=== PATIENT | male | born 1950 | race Two or more races ===

== ENCOUNTER 2020-07-05 08:52 | Outpatient (REF) | payer MEDICARE, SELFPAY | END 2020-07-05 08:53 | disposition home or self-care (01) | LOC: HO.LAB 08:52 | PROVIDERS: Visit Provider Internal Medicine | DX: Z20.828 Contact with and (suspected) exposure to other viral communicable diseases (principal) | CPT/HCPCS: C9803; U0003 ==

== ENCOUNTER 2022-06-22 15:01 | Outpatient (REF) | payer OTHER, SELFPAY ==
[2022-06-22 17:06] LABS: Vitamin B12 554 pg/mL (200-900)
== END 2022-06-22 15:02 | disposition home or self-care (01) ==
LOC: HO.LAB 15:01
PROVIDERS: Visit Provider Psychiatry & Neurology Neurology
DX: G31.84 Mild cognitive impairment of uncertain or unknown etiology (principal)
CPT/HCPCS: 36415; 82607

== ENCOUNTER → 2022-08-03 15:45 | Outpatient (REF) | payer OTHER, SELFPAY | LOC: HO.SL 15:45 | PROVIDERS: PCP Pediatrics; Visit Provider Psychiatry & Neurology Neurology | DX: G47.33 Obstructive sleep apnea (adult) (pediatric) (principal) | CPT/HCPCS: 95810 ==

== ENCOUNTER 2022-10-05 13:44 | Outpatient (REF) | payer OTHER, SELFPAY ==
--- NOTE | ~2022-10-05 | XR_ITS ---
EXAMINATION: XR BILATERAL HIPS WITH AP PELVIS CLINICAL INFORMATION: Pain. COMPARISON: Prior radiographs, most recently 05/09/2019. TECHNIQUE: AP and frog-leg lateral views of each hip and an AP view of the pelvis. FINDINGS: Bony alignment and mineralization are normal. The bilateral acetabular joint spaces show mild superolateral narrowing, with mild peripheral osteophyte formation of the acetabular roofs. The femoral heads appear smooth. There is no fracture or dislocation. The sacroiliac joints are symmetric. The pubic symphysis is intact. No foreign body is seen. XR/XR hip BI w PEL1V IMPRESSION: There is mild osteoarthritic change of the bilateral hips. No fracture or dislocation is seen.
== END 2022-10-05 13:45 | disposition home or self-care (01) ==
LOC: HO.XRAY 13:44
PROVIDERS: PCP Pediatrics; Visit Provider Nurse Practitioner Family
DX: M16.0 Bilateral primary osteoarthritis of hip (principal); M70.61 Trochanteric bursitis, right hip; M70.62 Trochanteric bursitis, left hip
CPT/HCPCS: 73521; 99202

== ENCOUNTER 2022-10-27 07:44 | Day surgery (SDC) | payer OTHER, SELFPAY ==
[2022-10-23 14:25] VITALS: BMI 31.8
--- NOTE | 2022-10-26 12:11 | HO.ANESPROP2 ---
Documented by User: Rosy Plascencia NP 10/26/22 12:14 HPI - Anesthesia Eval Consult details Narrative: 72yo M for Left Therapeutic intra-Articular hip Injection PMFSH Active Problems Active Problems: All Active Problems (Updated 10/23/22 @ 14:22 by Renita Damon RN) Degenerative joint disease of both hips (Acute) Past Medical History Medical History (Updated 10/23/22 @ 14:22 by Renita Damon RN) GERD (gastroesophageal reflux disease) Hypercholesterolemia Hyperlipidemia Hypertension Impotence of organic origin Obesity Osteoarthritis Restless leg Vitamin B12 deficiency Surgical History Surgical History (Updated 10/23/22 @ 14:15 by Renita Damon RN) History of esophagogastroduodenoscopy (EGD) History of surgery Hx of colonoscopy Social History Social History Patient Tobacco Use Status: Never used Tobacco Are you DNR?: No Advance Directives: No Advance Directives Information Provided: Yes Nutrition Risks: No Nutritional Risk Meds Allergies Allergy/AdvReac Type Severity Reaction Status Date / Time ibuprofen [Ibuprofen] Allergy Intermediate SWELLING Verified 10/27/22 08:34 Home Medications Medication Instructions Recorded Confirmed Last Taken Type atorvastatin 80 mg tablet 80 mg PO DAILY 10/05/22 10/23/22 Unknown History cetirizine 10 mg tablet 10 mg PO DAILY PRN Allergic 10/05/22 10/23/22 Unknown History Symptoms cholecalciferol (vitamin D3) 50 50 mcg PO DAILY 10/05/22 10/23/22 Unknown History mcg (2,000 unit) capsule omega-3 fatty acids-fish oil 340 1 cap PO Q12H 10/05/22 10/23/22 Unknown History mg-1,000 mg capsule omeprazole 20 mg capsule,delayed 20 mg PO BID 10/05/22 10/23/22 Unknown History release ropinirole 3 mg tablet 3 mg PO DAILY 10/05/22 10/23/22 Unknown History sertraline 50 mg tablet 50 mg PO QAM 10/05/22 10/23/22 Unknown History cyanocobalamin (vitamin B-12) 1 tab PO DAILY 10/23/22 10/23/22 Unknown History 1,000 mcg tablet fluticasone propionate 50 1 spray intranasal DAILY 10/23/22 10/23/22 Unknown History mcg/actuation nasal spray,suspension Exam Exam Date and Time: October 26, 2022 1211 Height,Weight and Vital Signs: Height 5 ft 3 in Weight 81.647 kg Assessment and Plan Assessment Anesthesia Assessment: Chart Reviewed Documented by User: Norma Lawrence MD 10/27/22 08:38 [facility] Past Medical History Medical History (Updated 10/23/22 @ 14:22 by Renita Damon RN) GERD (gastroesophageal reflux disease) Hypercholesterolemia Hyperlipidemia Hypertension Impotence of organic origin Obesity Osteoarthritis Restless leg Vitamin B12 deficiency Functional capacity: independent ambulation Family History Family history of problems with anesthesia: No Surgical History Surgical History (Updated 10/23/22 @ 14:15 by Renita Damon RN) History of esophagogastroduodenoscopy (EGD) History of surgery Hx of colonoscopy History of Problems with Anesthesia: No Social History Social History Patient Tobacco Use Status: Never used Tobacco Are you DNR?: No Advance Directives: No Advance Directives Information Provided: Yes Nutrition Risks: No Nutritional Risk Meds Allergies Allergy/AdvReac Type Severity Reaction Status Date / Time ibuprofen [Ibuprofen] Allergy Intermediate SWELLING Verified 10/27/22 08:34 Home Medications Medication Instructions Recorded Confirmed Last Taken Type atorvastatin 80 mg tablet 80 mg PO DAILY 10/05/22 10/23/22 Unknown History cetirizine 10 mg tablet 10 mg PO DAILY PRN Allergic 10/05/22 10/23/22 Unknown History Symptoms cholecalciferol (vitamin D3) 50 50 mcg PO DAILY 10/05/22 10/23/22 Unknown History mcg (2,000 unit) capsule omega-3 fatty acids-fish oil 340 1 cap PO Q12H 10/05/22 10/23/22 Unknown History mg-1,000 mg capsule omeprazole 20 mg capsule,delayed 20 mg PO BID 10/05/22 10/23/22 Unknown History release ropinirole 3 mg tablet 3 mg PO DAILY 10/05/22 10/23/22 Unknown History sertraline 50 mg tablet 50 mg PO QAM 10/05/22 10/23/22 Unknown History cyanocobalamin (vitamin B-12) 1 tab PO DAILY 10/23/22 10/23/22 Unknown History 1,000 mcg tablet fluticasone propionate 50 1 spray intranasal DAILY 10/23/22 10/23/22 Unknown History mcg/actuation nasal spray,suspension Exam Airway Mallampati Class: II (Missing multiple teeth, loose top front, couple to be removed) TM Dist: >3cm Neck ROM: Full Heart: rrr Lungs: cta bl Assessment and Plan Assessment Anesthesia Assessment: Anesthesia Plan Discussed Final Anesthetic Review Family History of Problems with Anesthesia: No History of Problems with Anesthesia: No NPO: Yes ASA Class: III Final Preanesthetic Review: No Changes in Pt Med Stat, Meds/Allgs Chart Reviewed and Consent Obtained/Reviewed Patient Risk: Intermediate Procedure Risk: Intermediate Anesthetic Plan Anesthetic Plan: MAC: Disposition: Standard PACU
--- NOTE | ~2022-10-27 | FL_ITS ---
EXAMINATION: XR FLUOROSCOPY WITH IMAGES CLINICAL INFORMATION: Hip pain. Pain management procedure. COMPARISON: Pelvic and hip radiographs 10/05/2022 TECHNIQUE: Fluoroscopy Supervised By: Dr. Diego Hand. Fluoroscopy Time: 0.2 minutes. Cumulative Dose: 9.31 mGy. DAP: 2.53 Gycm2. Images: 1. FINDINGS: There is a spinal needle with tip overlying the superolateral left hip joint. There is intracapsular contrast. No visible vascular communication. FL/FL guidance in OR IMPRESSION: Fluoroscopy for pain management procedure.
[2022-10-27] MEDS: Lactated Ringers 1,000 ML 100 ML IVCONT (08:20)
--- NOTE | 2022-10-27 08:30 | P.HPSUR_ITS ---
Pre-Procedural Eval Section A Date of Service: 10/27/22 The patient is an INPATIENT: No Changes since office visit: Yes Patient answered all questions The History & Physical has been completed within 30 days and I have reviewed it.: No Section B Chief Complaint: Bilateral primary osteoarthritis of hip/ Left hip Relevant Family History (Specify if Yes): No Relevant Social History: None Present Medications: see Short Stay Collaborative assessment Medical History: No relevant PMH History of Previous Operations: No relevant previous surgery Allergies: Allergies Allergy/AdvReac Type Severity Reaction Status Date / Time ibuprofen [Ibuprofen] Allergy Intermediate SWELLING Verified 10/05/22 13:51 Review of Systems Sugical H&P ROS: Negative: Constitution, Cardiovascular, Respiratory, Michael rological, Psychiatric, Hem-Onc, Allergic/Immunologic, Gastrointestinal, Genitourinary, Musculoskeletal, Integumentary, Endocrine and Eyes/Ears/Nose/Throat Exam Surgical H&P Exam: Normal: HEENT, Normal: Heart, Normal: Lungs, Normal: Extremities, Normal: Abdomen, Normal: Skin and Normal: Neurological Plan Diagnosis/Plan: Unchanged I have reviewed the history and physical and performed a pertinent physical examination on my patient. No changes have occurred unless specified. Time Spent With Patient Time: Total time managing care of this patient today ____ minutes.
[2022-10-27 08:40] VITALS: BP 144/80; PULSE 81; RESP 18; TEMP 36.9; O2SAT 96
--- NOTE | 2022-10-27 08:40 | W.PM.OPN ---
Operative Note Operative Note Date of Service: 10/27/22 Narrative: Left? Intra-articular hip steroid injection.? ?informed consent was explained to the patient, risks and benefits were explained. The patient was? taken to the operating room where he was position on right lateral decubital position the operating table with dependent leg flexed in the hip and knee joints and left non-dependent leg positioned straight. ASA m-rs were applied and the patient was sedated. His left lateral hip, anterior hip and posterior hip were prepped with ChloraPrep and draped with sterile utility towels.? Time-out was performed delineating? date of of the patient and name of the patient nature of the procedure site and side of the procedure noon allergy risk of fire and need of antibiotic prophylaxis. Sterilely draped C-arm was brought over the operating field and picture of the bilateral hip joints was demonstrated on the screen. The smaller silhouette of the joint was chosen as the target of the injection. 2 mm above the projection of the trochanter of the left hip injection of the local anesthetic was performed lidocaine 2%. After that 22 gauge 5 in needle was inserted through the skin wheal and advanced to the joint silhouette on anterior posterior and lateral intermittent view. ? When needle tip entered the joint capsule injection of the contrast was performed demonstrating intra-articular spread of the contrast.? After that treatment solution containing bupivacaine 0.5% 4 cc mixed with Kenalog 40 mg was injected into the joint.? The patient tolerated procedure well.? he was taken outside of the operating room to recovery room where he recovered uneventfully.
--- NOTE | 2022-10-27 08:41 | PC.NURSE ---
Dr. Lawrence reviewed EKG strip at bedside. No EKG or interventions needed at this time.
--- NOTE | 2022-10-27 09:02 | PM.OP ---
Brief Operative Note Date of Service: 10/27/22 Pre-op diagnosis: osteoarthritis left hip Post-op diagnosis: same Procedure: left hip joint intraarticular steroid injection. Surgeon: Diego Hand MD Anesthesia: MAC Was an Vacuum Cleaner Assembler used for this Procedure?: No Estimated blood loss (mL): 0 Condition: stable Disposition: PACU
[2022-10-27 09:05] VITALS: BP 106/57; PULSE 82; RESP 16; TEMP 36.6; O2SAT 92
[2022-10-27 09:20] VITALS: BP 111/73; PULSE 88; RESP 16; O2SAT 94
[2022-10-27 09:35] VITALS: BP 127/67; PULSE 75; RESP 16; TEMP 36.6; O2SAT 94
== END 2022-10-27 09:47 | disposition home or self-care (01) ==
PROVIDERS: PCP Pediatrics; Visit Provider Anesthesiology
PROC: (CPT 20610; principal; 2022-10-27 09:10)
DX: M25.552 Pain in left hip (principal); M70.62 Trochanteric bursitis, left hip; M16.0 Bilateral primary osteoarthritis of hip; I10 Essential (primary) hypertension; E78.00 Pure hypercholesterolemia, unspecified; G25.81 Restless legs syndrome; E53.8 Deficiency of other specified B group vitamins; Z79.899 Other long term (current) drug therapy; Z88.8 Allergy status to other drugs, medicaments and biological substances
CPT/HCPCS: 20610; J2250; J3010; J3301

== ENCOUNTER 2022-11-10 09:19 | Day surgery (SDC) | payer OTHER, SELFPAY ==
[2022-10-31 10:58] VITALS: BMI 31.8
--- NOTE | 2022-11-09 11:59 | HO.ANESPROP2 ---
Documented by User: Rosy Plascencia NP 11/09/22 12:00 HPI - Anesthesia Eval Consult details Narrative: 72yo M for Right Therapeutic Intra-Articular Hip Injection s/p Left side 10/27/22 with MAC PMFSH Active Problems Active Problems: All Active Problems (Updated 10/23/22 @ 14:22 by Renita Damon RN) Degenerative joint disease of both hips (Acute) Past Medical History Medical History GERD (gastroesophageal reflux disease) Hypercholesterolemia Hyperlipidemia Hypertension Impotence of organic origin Obesity Osteoarthritis Restless leg Vitamin B12 deficiency Family History Family history of problems with anesthesia: No Surgical History Surgical History History of esophagogastroduodenoscopy (EGD) History of surgery History of surgery Hx of colonoscopy History of Problems with Anesthesia: No Social History Social History Patient Tobacco Use Status: Former Tobacco user Quit Date: 40 yrs ago Use of substances other than those prescribed or required for medical reasons: No Are you DNR?: No Advance Directives: No Advance Directives Information Provided: Yes Meds Allergies Allergy/AdvReac Type Severity Reaction Status Date / Time ibuprofen [Ibuprofen] Allergy Intermediate SWELLING Verified 11/10/22 09:37 Home Medications Medication Instructions Recorded Confirmed Last Taken Type atorvastatin 80 mg tablet 80 mg PO DAILY 10/05/22 11/10/22 Unknown History cetirizine 10 mg tablet 10 mg PO DAILY PRN Allergic 10/05/22 11/10/22 Unknown History Symptoms cholecalciferol (vitamin D3) 50 50 mcg PO DAILY 10/05/22 11/10/22 Unknown History mcg (2,000 unit) capsule omega-3 fatty acids-fish oil 340 1 cap PO Q12H 10/05/22 11/10/22 Unknown History mg-1,000 mg capsule omeprazole 20 mg capsule,delayed 20 mg PO BID 10/05/22 11/10/22 Unknown History release ropinirole 3 mg tablet 3 mg PO DAILY 10/05/22 11/10/22 Unknown History cyanocobalamin (vitamin B-12) 1 tab PO DAILY 10/23/22 11/10/22 Unknown History 1,000 mcg tablet fluticasone propionate 50 1 spray intranasal DAILY 10/23/22 11/10/22 Unknown History mcg/actuation nasal spray,suspension Exam Exam Date and Time: November 09, 2022 1159 Height,Weight and Vital Signs: Height 5 ft 3 in Weight 81.647 kg Assessment and Plan Assessment Anesthesia Assessment: Chart Reviewed Final Anesthetic Review Family History of Problems with Anesthesia: No History of Problems with Anesthesia: No Documented by User: Olegario Reardon MD 11/10/22 09:40 COUNT INCLUDES THE [facility] Past Medical History Medical History GERD (gastroesophageal reflux disease) Hypercholesterolemia Hyperlipidemia Hypertension Impotence of organic origin Obesity Osteoarthritis Restless leg Vitamin B12 deficiency Surgical History Surgical History History of esophagogastroduodenoscopy (EGD) History of surgery History of surgery Hx of colonoscopy Social History Social History Patient Tobacco Use Status: Former Tobacco user Quit Date: 40 yrs ago Use of substances other than those prescribed or required for medical reasons: No Are you DNR?: No Advance Directives: No Advance Directives Information Provided: Yes Meds Allergies Allergy/AdvReac Type Severity Reaction Status Date / Time ibuprofen [Ibuprofen] Allergy Intermediate SWELLING Verified 11/10/22 09:37 Home Medications Medication Instructions Recorded Confirmed Last Taken Type atorvastatin 80 mg tablet 80 mg PO DAILY 10/05/22 11/10/22 Unknown History cetirizine 10 mg tablet 10 mg PO DAILY PRN Allergic 10/05/22 11/10/22 Unknown History Symptoms cholecalciferol (vitamin D3) 50 50 mcg PO DAILY 10/05/22 11/10/22 Unknown History mcg (2,000 unit) capsule omega-3 fatty acids-fish oil 340 1 cap PO Q12H 10/05/22 11/10/22 Unknown History mg-1,000 mg capsule omeprazole 20 mg capsule,delayed 20 mg PO BID 10/05/22 11/10/22 Unknown History release ropinirole 3 mg tablet 3 mg PO DAILY 10/05/22 11/10/22 Unknown History cyanocobalamin (vitamin B-12) 1 tab PO DAILY 10/23/22 11/10/22 Unknown History 1,000 mcg tablet fluticasone propionate 50 1 spray intranasal DAILY 10/23/22 11/10/22 Unknown History mcg/actuation nasal spray,suspension Exam Airway Mallampati Class: II TM Dist: >3cm Neck ROM: Limited Heart: rrr Lungs: cta Assessment and Plan Assessment Anesthesia Assessment: Anesthesia Plan Discussed Final Anesthetic Review ASA Class: III Final Preanesthetic Review: No Changes in Pt Med Stat, Meds/Allgs Chart Reviewed, Consent Obtained/Reviewed and Anes Risks/Benef Reviewed Patient Risk: Intermediate Procedure Risk: Low Anesthetic Plan Anesthetic Plan: MAC: Disposition: Standard PACU
--- NOTE | ~2022-11-10 | FL_ITS ---
EXAMINATION: XR FLUOROSCOPY WITH IMAGES CLINICAL INFORMATION: Intra-articular injection. Right hip pain COMPARISON: None available. TECHNIQUE: Fluoroscopy Supervised By: Dr. Diego Holliday Fluoroscopy Time: 0.2 minutes. Cumulative Dose: 4.28 mGy. DAP: 1.16 Gycm2. Images: 1. FINDINGS: There is a single image of right hip obtained revealing contrast opacifying the right hip joint space. No bony erosive changes. There are no loose bodies. No fracture or dislocation. FL/FL guidance in OR IMPRESSION: Fluoroscopy was provided to referring physician for right hip pain management.
[2022-11-10 09:29] VITALS: BMI 32.8
[2022-11-10 09:37] VITALS: BP 143/65; PULSE 82; RESP 16; TEMP 36.1; O2SAT 97
[2022-11-10] MEDS: Lactated Ringers 1,000 ML 100 ML IVCONT (09:54)
--- NOTE | 2022-11-10 10:53 | MHC.SHP ---
Pre-Procedural Eval Section A Date of Service: 11/10/22 The patient is an INPATIENT: No Changes since office visit: Yes Patient answered all questions The History & Physical has been completed within 30 days and I have reviewed it.: No Section B Chief Complaint: Bilateral primary osteoarthritis of hip,Pain in ri Details of Present Illness: as above Relevant Family History (Specify if Yes): No Relevant Social History: None Present Medications: see Short Stay Collaborative assessment Medical History: No relevant PMH History of Previous Operations: No relevant previous surgery Allergies: Allergies Allergy/AdvReac Type Severity Reaction Status Date / Time ibuprofen [Ibuprofen] Allergy Intermediate SWELLING Verified 11/10/22 09:37 Review of Systems Sugical H&P ROS: Negative: Constitution, Cardiovascular, Respiratory, Neurological, Psychiatric, Hem-Onc, Allergic/Immunologic, Gastrointestinal, Genitourinary, Integumentary, Endocrine and Eyes/Ears/Nose/Throat and Yes, Specify: Musculoskeletal (arthritis) Exam Surgical H&P Exam: Normal: HEENT, Normal: Heart, Normal: Lungs, Normal: Extremities, Normal: Abdomen, Normal: Skin and Normal: Neurological Plan Diagnosis/Plan: Unchanged I have reviewed the history and physical and performed a pertinent physical examination on my patient. No changes have occurred unless specified. Time Spent With Patient Time: Total time managing care of this patient today ____ minutes.
--- NOTE | 2022-11-10 11:23 | P.BOP_ITS ---
Brief Operative Note Date of Service: 11/10/22 Pre-op diagnosis: bilateral osteoarthritis hip joints Post-op diagnosis: same Procedure: right hip steroid injectioon Surgeon: Diego Hand MD Anesthesia: MAC Was an Fast Food Assistant Restaurant Manager used for this Procedure?: No Estimated blood loss (mL): 0 Condition: stable Disposition: PACU
--- NOTE | 2022-11-10 11:25 | W.PM.OPN ---
Operative Note Operative Note Date of Service: 10/27/22 Narrative: right? Intra-articular hip steroid injection.? ?informed consent was explained to the patient, risks and benefits were explained. The patient was? taken to the operating room where he was position on left lateral decubital position the operating table with dependent leg flexed in the hip and knee joints and right non-dependent leg positioned straight. ASA m-rs were applied and the patient was sedated. His right lateral hip, anterior hip and posterior hip were prepped with ChloraPrep and draped with sterile utility towels.? Time-out was performed delineating? date of of the patient and name of the patient nature of the procedure site and side of the procedure noon allergy risk of fire and need of antibiotic prophylaxis. Sterilely draped C-arm was brought over the operating field and picture of the bilateral hip joints was demonstrated on the screen. The smaller silhouette of the joint was chosen as the target of the injection. 2 mm above the projection of the trochanter of the right hip injection of the local anesthetic was performed lidocaine 2%. After that 22 gauge 5 in needle was inserted through the skin wheal and advanced to the joint silhouette on anterior posterior and lateral intermittent view. ? When needle tip entered the joint capsule injection of the contrast was performed demonstrating intra-articular spread of the contrast.? After that treatment solution containing bupivacaine 0.5% 4 cc mixed with Kenalog 40 mg was injected into the joint.? The patient tolerated procedure well.? he was taken outside of the operating room to recovery room where he recovered uneventfully.
[2022-11-10 11:28] VITALS: BP 112/61; PULSE 81; RESP 16; TEMP 36.6; O2SAT 93
[2022-11-10 11:43] VITALS: BP 129/78; PULSE 66; RESP 16; TEMP 36.3; O2SAT 95
== END 2022-11-10 12:20 | disposition home or self-care (01) ==
PROVIDERS: PCP Pediatrics; Visit Provider Anesthesiology
PROC: (CPT 20610; principal; 2022-11-10 10:40)
DX: M25.551 Pain in right hip (principal); M16.0 Bilateral primary osteoarthritis of hip; M70.61 Trochanteric bursitis, right hip; G25.81 Restless legs syndrome; I10 Essential (primary) hypertension; E78.00 Pure hypercholesterolemia, unspecified; E53.8 Deficiency of other specified B group vitamins; K21.9 Gastro-esophageal reflux disease without esophagitis; E66.9 Obesity, unspecified; Z68.33 Body mass index [BMI] 33.0-33.9, adult; Z79.899 Other long term (current) drug therapy; Z88.8 Allergy status to other drugs, medicaments and biological substances; Z87.891 Personal history of nicotine dependence
CPT/HCPCS: 20610; J1100; J2795; J3301; Q9965; Q9967

== ENCOUNTER 2023-02-14 08:38 | Outpatient (REF) | payer OTHER, SELFPAY ==
--- NOTE | 2023-02-14 08:41 | EMG_ITS ---
Please see scanned EMG / Nerve Conduction Report. MTDD
== END 2023-02-14 08:39 | disposition home or self-care (01) ==
LOC: HO.NEURO 08:38
PROVIDERS: PCP Pediatrics; Visit Provider Pediatrics
DX: R25.3 Fasciculation (principal)
CPT/HCPCS: 95885; 95911

== ENCOUNTER 2023-11-19 11:45 | Outpatient (REF) | payer OTHER, SELFPAY ==
[2023-11-19 15:38] LABS: Alanine Aminotransferase 28 U/L (0-40); Albumin Level 4.1 g/dL (3.5-5.0); Alkaline Phosphatase 93 U/L (39-117); Anion Gap 11 (12-20); Aspartate Amino Transferase 20 U/L (5-37); Bilirubin Direct 0.2 mg/dL (0.0-0.5); Bilirubin Total 0.5 mg/dL (0.0-1.0); Blood Urea Nitrogen 17 mg/dL (9-16); Calcium 9.2 mg/dL (8.4-10.2); Carbon Dioxide 26 mmol/L (22-29); Chloride 109 mmol/L (96-108); Cholesterol 123 mg/dL (<200); Estimated Glomerular Filt Rate > 60; Glucose Fasting 108 mg/dL (60-99); HDL Cholesterol 34 mg/dL (>40); LDL Cholesterol Calculated 60 mg/dL (<100); Potassium 4.4 mmol/L (3.3-5.1); Sodium 142 mmol/L (135-145); Total Protein 6.9 g/dL (6.5-8.0); Triglycerides 145 mg/dL (<150)
[2023-11-19 15:41] LABS: Folate 8.3 ng/mL (> or = 4.0); Prostate Specific Antigen 0.71 ng/mL (<0.05-4.0); Vitamin B12 799 pg/mL (200-900)
[2023-11-19 15:46] LABS: Vitamin D 25-OH Total 19.2 ng/mL (>30)
== END 2023-11-19 11:46 | disposition home or self-care (01) ==
LOC: HO.CHCLDS 11:45
PROVIDERS: Visit Provider Pediatrics
DX: R73.03 Prediabetes (principal); E53.8 Deficiency of other specified B group vitamins; E78.00 Pure hypercholesterolemia, unspecified; Z12.5 Encounter for screening for malignant neoplasm of prostate
CPT/HCPCS: 36415; 80048; 80061; 80076; 82306; 82607; 82746; 84153

== ENCOUNTER 2023-12-20 12:53 | Outpatient (AMB) | payer OTHER, MEDICAID, SELFPAY ==
[2023-12-20 13:03] VITALS: BP 139/66; PULSE 83; O2SAT 98; BMI 32.6
--- NOTE | 2023-12-20 13:03 | A.OFFVIS_ITS ---
Vital Signs 12/20/23 13:03 Height 5 ft 3 in Weight 184 lb 4 oz BMI 32.6 BP 139/66 Blood Pressure Location Rt brachial Position Sitting Pulse 83 Pulse Source Pulse Oximeter Pulse Oximetry (%) 98 Oxygen Delivery Method Room Air Intake Visit Reasons: s/p B/L Hip Inj 10/27 Allergies ibuprofen [Ibuprofen] Allergy (Intermediate, Verified 12/20/23 13:09) SWELLING HPI Comments Details: Fran is back in my office after bilateral therapeutic intra-articular hip injection which was performed on him on 10/28/2023. He reports this time he does not have any pain relief. He had injection in the past which was more successful in pain improvement. He has history of osteoarthritis bilateral hip. I explained to the patient about total hip replacement. Initially he was reluctant to go for total hip replacement however he agreed to go for the appointment with orthopedic surgeon Dr. Brooks and discuss possibility of the procedure. Prior: 72 years old male with a history of DJD and OA of bilateral hip presents today with worsening pain in bilateral hips and requests steroid injection. Patient reports bilateral hip for 2 years. Denies any recent trauma, injury or falls. Pain is localized to lateral hips with intermittent radiation to his bilateral groin with internal and external hip rotations as well tenderness in both GTB, worse on the left side and worse with internal rotation. Prolonged walking, side sleeping, and cold weather changes exacerbate his pain. He takes Tylenol Arthritis with continued symptoms. He cannot pursue physical therapy due to significant pain. [facility] Medical History Obesity GERD (gastroesophageal reflux disease) Hyperlipidemia Vitamin B12 deficiency Restless leg Osteoarthritis Hypertension Impotence of organic origin Hypercholesterolemia Surgical History History of surgery History of surgery History of esophagogastroduodenoscopy (EGD) Hx of colonoscopy Social History Patient Tobacco Use Status: Former Tobacco user Quit Date: 40 yrs ago Review of Systems Const All systems reviewed & are unremarkable except as noted in HPI and below Physical Exam Vital Signs: Last Vital Signs Pulse 83 12/20/23 13:03 BP 139/66 12/20/23 13:03 Pulse Ox 98 12/20/23 13:03 Oxygen Delivery Method Room Air 12/20/23 13:03 BMI result Body Mass Index 32.6 On exam today: Appears afebrile. Alert and oriented. Mood and affect appropriate. Follows and participates in conversation appropriately. Respiratory effort is unlabored. No cough. Able to transition from sit to stand unassisted. Ambulates with bilaterally normal heel strike and toe off. Able to stand and walk on toes and heels. Back/Spine/Pelvis Other: Patient is able to walk and stand on heels and tip toes with no difficulties demonstrating good motor tone. Mild antalgic with limping on the right. Can flex forward to 65-75 degrees and extend to 10-15 degrees before experiencing lumbar pain. Demonstrates 5/5 strength of quadriceps bilaterally as well as flexion/dorsiflexion of bilateral feet against resistance. 2+ pedal pulses bilaterally. Straight leg rise with dorsiflexion negative bilaterally. +2 patellar and +1 achilles reflexes bilaterally. Facet loading test positive bilaterally. Mild groin pain with I/E hip rotations bilaterally, left >right. Mild TTP to both GTB. Cervical Spine: cervical ROM normal and No Cervical spine tenderness Thoracic/Lumbar Spine: thoracic and lumbar spine normal to inspection, thoraco- lumbar ROM normal, Lasegue's sign negative, straight leg raise negative bilaterally, No paraspinal muscle tenderness, No thoracic spinal tenderness and No lumbar spinal tenderness Pelvis: buttock tenderness on the left Sacroiliac joints: on the right nontender and on the left (+Abelino's, Pelvic compression, and Stinchfield) tender to palpation Assessment & Plan Assessment & Plan (1) Bilateral hip pain: Code(s): M25.551 - Pain in right hip; M25.552 - Pain in left hip (2) Greater trochanteric bursitis of both hips: Code(s): M70.61 - Trochanteric bursitis, right hip; M70.62 - Trochanteric bursitis, left hip (3) Degenerative joint disease of both hips: Code(s): M16.0 - Bilateral primary osteoarthritis of hip Category: Medical Plan Bilateral intra-articular hip steroid injections resulted in no pain improvement. Total hip replacement discussed. Patient wants to speak with orthopedic surgery. Referral will be made. Anticoagulation: Patient not on anticoagulant Justification for interventional therapy: ? Patient with average pain > 6/10 ? Patient has exhausted conservative therapy, unable to take NSAIDs due to Ibuprofen allergy ? Patient unable to tolerate physical therapy due to pain Orders: Referrals Orthopedics Referral M16.0 - Bilateral primary osteoarthritis of hip Coding Level of Care Code Est Pt Level 3 (90944) Diagnoses Bilateral hip pain M25.551; M25.552 Greater trochanteric bursitis of both hips M70.61; M70.62 Degenerative joint disease of both hips M16.0
== END 2023-12-20 13:18 | disposition home or self-care (01) ==
PROVIDERS: PCP Pediatrics; Visit Provider Anesthesiology
DX: M25.551 Pain in right hip (principal); M25.552 Pain in left hip; M70.61 Trochanteric bursitis, right hip; M70.62 Trochanteric bursitis, left hip; M16.0 Bilateral primary osteoarthritis of hip
CPT/HCPCS: 99213

== ENCOUNTER → 2023-12-20 12:53 | Outpatient (BNVA) | payer OTHER, SELFPAY | PROVIDERS: PCP Pediatrics; Visit Provider Anesthesiology | DX: M70.61 Trochanteric bursitis, right hip (principal); M70.62 Trochanteric bursitis, left hip; M16.0 Bilateral primary osteoarthritis of hip | CPT/HCPCS: 99212 ==

== ENCOUNTER 2025-06-29 08:42 | Outpatient (REF) | payer OTHER, SELFPAY ==
--- OUTSIDE RECORDS SUMMARY | 2025-06-25 10:00 | XMS_ITS | Encounter Summary ---
Author Organization [employer] Address [address] [facility] 7[address] [place] [address] Care Team Providers Care Claim Specialist Name Role Phone Cintia Sheets MD Primary Care Provider [phone] Reason for Referral * Consultation (Routine) - Closed Specialty Diagnoses / Procedures Referred By Contdemarcus pate Referred To Contact Podiatry Diagnoses Right foot pain Cintia Sheets MD [address] [place] [address] Phone: tel: fax: Alfredo Sood DPM [address] [facility] [address] [place] [address] Phone: tel: fax: Referral ID Status Reason Start Date Expiration Date V isits Requested Visits Authorized [id number] Closed Specialty Services Required 06/25/2025 06/25/2026 1 1 Encounter Details Date Type Department Care Team (Latest Contact Info) Description 06/25/2025 11:00 AM EDT Office Visit [facility] MED & PEDS [address] [place], [place] [phone] Cintia Sheets MD [address] [place], [place] [phone] Idiopathic osteoarthritis (Primary Dx); Encounter for immunization; Vitamin B12 deficiency (non anemic); Pure hypercholesterolemia; Right foot pain; Dietary counseling; Exercise counseling Social History Tobacco Use Types Packs/Day Years Used Date Smoking Tobacco: Never Passive Smoke Exposure: Never Smokeless Tobacco: Never Alcohol Use Standard Drinks/Week Comments Never 0 (1 standard drink = 0.6 oz pur e alcohol) Alcohol Answer Date Recorded Frequency of Alcohol Consumption Not on file 03/17/2024 Average Number of Drinks Not on file 024 Frequency of Binge Drinking Not on file 02/25 Score 0 03/17/2024 Depression Answer Date Recorded Patient Health Questionnaire-9 Score 2 06/25/2025 Patient Health Questionnaire-9 Score 2 06/25/2025 Last PHQ-9: Questionnaire Data Not on file 1 Housing Stability Answer Date Recorded What is your housing situation today? I have olga fitch 06/25/[address] you li ve. Do you have problems with any of the following? None of the above 06/25/2025 Food Insecurity Answer Date Recorded Within the past 12 months, y ou worried that your food would run out before you got money to buy more: Sometimes True 2024 Within the past 12 months,th e food you bought just didn't last and you didn't have enough money to get more: Sometimes True 06/25/2025 Transportation Answer Date Recorded In the past 12 months, has l ack of transportation kept you from medical appts, meetings, work or from getting things needed for daily living? No 06/25/2025 Utilities Answer Date Recorded In the past 12 months, has t he electric, gas, oil or water company threatened to shut off services in your home? No 06/25/2025 Depression Answer Date Recorded Patient Health Questionnaire-2 Score 1 06/25/2025 Internet Access Answer Date Recorded Internet Access Q1 Yes 06/25/2025 Internet Access Q2 Not on file 06/25/2025 Sex and Gender Information Value Date Recorded Sex Assigned at Male 06/26/2022 10:15 AM EDT Legal Sex Male 10:15 AM EDT Gender Identity Male 10/26/2022 2:24 PM EST Sexual Orientation Straight 10/26/2022 2: 24 PM EST documented as of this encounter Last Filed Vital Signs Vital Sign Reading Time Taken Comments Blood Pressure 110/54 06/25/2025 11:06 AM EDT Pulse 80 06/25/2025 11:06 AM EDT Temperature 36.6 C (97.9 F) 06/25/2025 11:06 AM EDT Respiratory Rate 20 06/25/2025 11:06 AM EDT Oxygen Saturation - - Inhaled Oxygen Concentration - - Weight 79.4 kg (175 lb) 06/25/2025 11:06 AM EDT Height - - Body Mass Index 31 07/31/2024 3:29 PM EST documented in this encounter Functional Status * Over the past 2 weeks, how often have you been bothered by any of the following problems? Question Answer Date of Assessment Author Patient Health Questionnaire -2 Score 1 06/25/2025 11:13 AM EDT Jorge Smith MA * Little interest or pleasure in doing things Answer Date of Assessment Author Several days 06/25/2025 11:13 AM EDT Sarah Rivera MA * Feeling down, depressed, or hopeless Answer Date of Assessment Author Not at all 06/25/2025 11:13 AM EDT Sarah Rivera MA * Trouble falling or staying asleep, or sleeping too much Answer Date of Assessment Author Not at all 06/25/2025 11:13 AM EDSarah Antonio MA * Feeling tired or having little energy Answer Date of Assessment Author Several days 06/25/2025 11:13 AM ESTUARDOT Sarah Rivera MA * Poor appetite or overeating Answer Date of Assessment Author Not at all 06/25/2025 11:13 AM Sarah Almaraz MA * Feeling bad about yourself - or that you are a failure or have let yourself or your family down Answer Date of Assessment Author Not at all 06/25/2025 11:13 AM EDSarah Antonio MA * Trouble concentrating on things, such as reading the newspaper or watching television Answer Date of Assessment Author Not at all 06/25/2025 11:13 AM Sarah Almaraz MA * Moving or speaking so slowly that other people could have noticed? Or the opposite - being so fidgety or restless that you have been moving around a lot more than usual. Answer Date of Assessment Author Not at all 06/25/2025 11:13 AM Sarah Almaraz MA * Thoughts that you would be better off or hurting yourself in some way Answer Date of Assessment Author Not at all 06/25/2025 11:13 AM EDT Sarah Rivera MA * Patient Health Questionnaire-9 Score Answer Date of Assessment Author 2 06/25/2025 11:13 AM EDT Sarah Rivera MA * How difficult have these problems made it for you to do your work, take care of things at home, or get along with other people? Answer Date of Assessment Author Not difficult at all 06/25/2025 11:13 AM EDT Sarah Arango MA documented as of this encounter Progress Notes * Cintia Sheets MD - 06/25/2025 11:00 AM EDT Subjective Patient ID: Fran Anthony is a 75 y.o. male who presents for follow up. Fran Atnhony, age 75 Right Foot Pain Has had persistent right foot pain for a long time. Was referred to a crate opener in [place] several months ago and waited six months for the appointment. Was told to use insoles but reports no improvement with their use. No injection or further treatment provided by crate opener. Continues to experience pain and is seeking further evaluation with another crate opener. Hip Pain Experiences significant hip pain with swelling, especially after walking or standing for 2-3 minutes. Takes ibuprofen occasionally for relief. No Reports of difficulty sleeping on the affected side. Expresses fear of receiving the flu vaccine due to prior experiences of developing symptoms such asnasal congestion and watery nose after vaccination. Denies receiving the flu vaccine recently. Stopped using prescribed eye drops and cholesterol medication, stating he feels well and does not need them. Fran Anthony, age 75 Right Foot Pain Has had persistent right foot pain for a long time. Was referred to a crate opener in [place] several months ago and waited six months for the appointment. Was told to use insoles but reports no improvement with their use. No injection or further treatment provided by crate opener. Continues to experience pain and is seeking further evaluation. Neck Pain Reports recurrent neck pain with episodes of swelling described as a lump in the neck area. No specific triggers identified. Hip Pain Experiences significant hip pain with swelling, especially after walking or standing for 2-3 minutes. Takes ibuprofen occasionally for relief. Reports difficulty sleeping on the affected side. Upper Respiratory Symptoms Expresses fear of receiving the flu vaccine due to prior experiences of developing symptoms such asnasal congestion and watery nose after vaccination. Denies receiving the flu vaccine recently. Medication Use Stopped using prescribed eye drops and cholesterol medication, stating he feels well and does not need them. Laboratory Testing States that laboratory tests were ordered last year but results were never received. Had blood drawn at a different location and was later sent additional orders in June, but did not receive results. Expresses concern about lack of feedback regarding lab results. Review of Systems Constitutional: Negative for activity change, chills, fever and unexpected weight change. Respiratory: Negative for cough, chest tightness, shortness of breath and wheezing. Cardiovascular: Negative for chest pain, palpitations and leg swelling. Gastrointestinal: Negative for abdominal pain and blood in stool. Endocrine: Negative for polydipsia and polyuria. Genitourinary: Negative for decreased urine volume, difficulty urinating, dysuria and hematuria. Musculoskeletal: Positive for arthralgias. Negative for gait problem. Skin: Negative for color change and rash. Neurological: Negative for dizziness and headaches. Hematological: Negative for adenopathy. Psychiatric/Behavioral: Negative for dysphoric mood, hallucinations, sleep disturbance and suicidalideas. The patient is not nervous/anxious. Objective Vitals: 06/25/25 1106 BP: 110/54 BP Location: Left arm Patient Position: Sitting BP Cuff Size: Adult Pulse: 80 Resp: 20 Temp: 97.9 ??F (36.6 ??C) TempSrc: Oral Weight: 175 lb (79.4 kg) Physical Exam Vitals reviewed. Constitutional: General: He is not in acute distress. Appearance: He is obese. HENT: Head: Normocephalic. Mouth/Throat: Mouth: Mucous membranes are moist. Eyes: Extraocular Movements: Extraocular movements intact. Conjunctiva/sclera: Conjunctivae normal. Pupils: Pupils are equal, round, and reactive to light. Cardiovascular: Rate and Rhythm: Normal rate and regular rhythm. Heart sounds: Normal heart sounds. No murmur heard. Pulmonary: Effort: Pulmonary effort is normal. No respiratory distress. Breath sounds: Normal breath sounds. No wheezing. Abdominal: General: There is distension. Palpations: Abdomen is soft. Musculoskeletal: Right lower leg: No edema. Left lower leg: No edema. Neurological: Mental Status: He is oriented to person, place, and time. Mental status is at baseline. Coordination: Coordination normal. Gait: Gait normal. Deep Tendon Reflexes: Reflexes normal. Psychiatric: Mood and Affect: Mood normal. Behavior: Behavior normal. Thought Content: Thought content normal. Judgment: Judgment normal. Assessment/Plan Diagnoses and all orders for this visit: Idiopathic osteoarthritis - Lipid Panel, Standard; Future - CBC auto differential; Future - TSH W/Reflex to FT4; Future - Vitamin D, 25-Hydroxy, Total, Immunoassay; Future - Vitamin B12/Folate, Serum Panel; Future - Hepatic Function Panel; Future - Basic Metabolic Panel, Fasting; Future Encounter for immunization Comments: PCV20 vaccine recieved today,declines flu shot. Orders: - PCV-20 VACCINE 6 wks + - Lipid Panel, Standard; Future - CBC auto differential; Future - TSH W/Reflex to FT4; Future - Vitamin D, 25-Hydroxy, Total, Immunoassay; Future - Vitamin B12/Folate, Serum Panel; Future - Hepatic Function Panel; Future - Basic Metabolic Panel, Fasting; Future Vitamin B12 deficiency (non anemic) Comments: Known B12 deficiency before,repeat levels today,call with results. Orders: - Lipid Panel, Standard; Future - CBC auto differential; Future - TSH W/Reflex to FT4; Future - Vitamin D, 25-Hydroxy, Total, Immunoassay; Future - Vitamin B12/Folate, Serum Panel; Future - Hepatic Function Panel; Future - Basic Metabolic Panel, Fasting; Future Pure hypercholesterolemia Comments: States not taking his statin med as he feels well.Aware will recheck lipids with labs today. Orders: - Lipid Panel, Standard; Future - CBC auto differential; Future - TSH W/Reflex to FT4; Future - Vitamin D, 25-Hydroxy, Total, Immunoassay; Future - Vitamin B12/Folate, Serum Panel; Future - Hepatic Function Panel; Future - Basic Metabolic Panel, Fasting; Future Right foot pain Comments: Using shoe insert as per previous crate opener recommended. New podiatry referral done today for pateint due to still having pain and chronic complaints. Orders: - Referral to Podiatry; Future Dietary counseling Exercise counseling - Encounter for immunization: - No influenza or pneumococcal vaccine administered; declined influenza vaccination due to previousadverse symptoms. No recent shingles vaccine this year. - Discussed and offered influenza and pneumococcal vaccines; patient declined influenza vaccine. Nofurther action taken regarding immunization at this visit. - Idiopathic osteoarthritis: - Osteoarthritis discussed as possible etiology for hip pain and stiffness, with mention of possible bursitis in the hips. - Recommended use of compression stockings for lower extremity symptoms, especially during cold weather and ambulation. Provided information on acupuncture as adjunct therapy for musculoskeletal pain. Advised [id number] analgesics such as ibuprofen as needed. - Cervical radiculopathy: - Cervical pain with sensation of a lump in the neck discussed; no further diagnostic or therapeutic intervention initiated at this visit. - Pure hypercholesterolemia: - Hypercholesterolemia discussed; patient not currently taking cholesterol medication by choice. Plan to monitor lipid levels. - Ordered laboratory testing for cholesterol and other parameters to be performed fasting on June 26, 2025. Advised patient to return fasting (no coffee or juice) for blood draw. Results to be sent by mail; will call if any abnormal results found. - Right foot pain: - Chronic right foot pain refractory to prior podiatry intervention and orthotic use; dissatisfaction with previous specialist evaluation and lack of improvement. - Provided new referral to crate opener (Dr. Sood) for further evaluation and management. Instructed patient to bring current orthotics to appointment. Arranged for referral information to be sent by mail and phone. No future appointments. This note was drafted using [employer] technology. The patient/patient's guardian has been informed and has consented to the use of this technology: Yes documented in this encounter Plan of Treatment Scheduled Orders Name Type Priority Associated Diagnoses Orde r Schedule Lipid Panel, Standard Lab Routine Encounter for immunization Idiopathic osteoarthritis Vitamin B12 deficiency (non anemic) Pure hypercholesterolemia Expected: 06/25/2025 (Approximate), Expires: 06/25/2026 CBC auto differential Lab Routine Encounter for immunization Idiopathic osteoarthritis Vitamin B12 deficiency (non anemic) Pure hypercholesterolemia Expected: 06/25/2025 (Approximate), Expires: 06/25/2026 TSH W/Reflex to FT4 Lab Routine Encounter for immunization Idiopathic osteoarthritis Vitamin B12 deficiency (non anemic) Pure hypercholesterolemia Expected: 06/25/2025 (Approximate), Expires: 06/25/2026 Vitamin D, 25-Hydroxy, Total, Immunoassay Lab Routine Encounter for immunization Idiopathic osteoarthritis Vitamin B12 deficiency (non anemic) Pure hypercholesterolemia Expected: 06/25/2025 (Approximate), Expires: 06/25/2026 Vitamin B12/Folate, Serum Panel Lab Routine Encounter for immunization Idiopathic osteoarthritis Vitamin B12 deficiency (non anemic) Pure hypercholesterolemia Expected: 06/25/2025, Expires: 06/25/2026 Hepatic Function Panel Lab Routine Encounter for immunization Idiopathic osteoarthritis Vitamin B12 deficiency (non anemic) Pure hypercholesterolemia Expected: 06/25/2025 (Approximate), Expires: 06/25/2026 Basic Metabolic Panel, Fasting Lab Routine Encounter for immunization Idiopathic osteoarthritis Vitamin B12 deficiency (non anemic) Pure hypercholesterolemia Expected: 06/25/2025 (Approximate), Expires: 06/25/2026 Scheduled Referrals Name Type Priority Associated Diagnoses Orde r Schedule Referral to Podiatry Outpatient Referral Routine Right foot pain Expected: 06/25/2025 (Approximate), Expires: 06/25/2026 documented as of this encounter Visit Diagnoses Diagnosis Idiopathic osteoarthritis- Primary Osteoarthrosis, unspecified whether generalized or localized, unspecified site Encounter for immunization Vitamin B12 deficiency (non anemic) Other B-complex deficiencies Pure hypercholesterolemia Right foot pain Pain in soft tissues of limb Dietary counseling Dietary surveillance and counseling Exercise counseling documented in this encounter Additional Health Concerns Assessment Noted Time PHQ-9 Depression Total Score: 2 06/25/20 25 11:13 AM EDT documented as of this encounter Care Teams Claim Specialist Relationship Specialty Start Date End Date Cintia Sheets MD [address] [place] [address] PCP - General Family Medicine 08/27/18 documented as of this encounter
--- OUTSIDE RECORDS SUMMARY | 2025-06-29 09:14 | XMS_ITS | Encounter Summary ---
Author Organization [employer] Address [address] [facility] 7t [place] [address] Care Team Providers Care Automation Tech Name Role Phone Cintia Sheets MD Primary Care Provider [phone] Reason for Visit * Reason Comments Med Refill Encounter Details Date Type Department Care Team ([facility] st Contact Info) Description 12/28/2022 Refill [facility] CHC ADULT DENTAL [address] [place] [address] Francisco Ward DDS [address] [place] [address] Social History Tobacco Use Types Packs/Day Years Used Date Smoking Tobacco: Never Passive Smoke Exposure: Never Smokeless Tobacco: Never Alcohol Use Standard Drinks/Week Comments Never 0 (1 standard drink = 0.6 oz pur e alcohol) Sex and Gender Information Value Date Recorded Sex Assigned at Male 06/26/2022 10:15 AM EDT Legal Sex Male 10:15 AM EDT Gender Identity Male 10/26/2022 2:24 PM EST Sexual Orientation Straight 10/26/2022 2: 24 PM EST COVID-19 Exposure Response Date Recorded In the last 10 days, have yo u been in contact with someone who was confirmed or suspected to have Coronavirus/COVID-19? No / Unsure 12/18/2022 2:34 PM EDT documented as of this encounter Miscellaneous Notes * Telephone Encounter - Francisco Ward DDS - 12/29/2022 10:59 AM EDT Approving, but needs appt for additional refills. documented in this encounter Plan of Treatment Not on file documented as of this encounter Visit Diagnoses Not on filedocumented in this encounter Care Teams Automation Tech Relationship Specialty Start Date End Date Cintia Sheets MD [address] [place] [address] PCP - General Family Medicine 08/27/18 documented as of this encounter
--- OUTSIDE RECORDS SUMMARY | 2025-06-29 09:14 | XMS_ITS | Encounter Summary ---
Author Organization [employer] Address [address] [facility] [address]t [place] [address] Care Team Providers Care Clinical Support Nurse Name Role Phone Cintia Sheets MD Primary Care Provider [phone] Reason for Visit * Reason Comments Med Refill Encounter Details Date Type Department Care Team ([facility] st Contact Info) Description 12/22/2022 Refill [facility] CHC ADULT DENTAL [address] [place] [address] Francisco Ward DDS [address] [place] [address] Social History Tobacco Use Types Packs/Day Years [...] Telephone Encounter - Francisco Ward DDS - 12/25/2022 3:57 PM EDT Approving, but needs appt for additional refills. documented in this encounter Plan of Treatment Not on file documented as of this encounter Visit Diagnoses Not on filedocumented in this encounter Care Teams Clinical Support Nurse Relationship Specialty Start Date End Date Cintia Sheets MD [address] [place] [address] PCP - General Family Medicine 08/27/18 documented as of this encounter
--- OUTSIDE RECORDS SUMMARY | 2025-06-29 09:14 | XMS_ITS | Encounter Summary ---
Author Organization [employer] Address [address] [facility] 7t [place] [address] Care Team Providers Care Supply Chain Business Analyst Name Role Phone Cintia Sheets MD Primary Care Provider [phone] Reason for Visit * Reason Comments Med Refill Encounter Details Date Type Department Care Team ([facility] Contact Info) Description 08/18/2024 Refill [facility] CHC MED & PEDS [address] [place], [place] [phone] Cintia Sheets MD [address] [place] [address] Social History Tobacco Use Types Packs/Day Years [...] Date Recorded Patient Health Questionnaire-9 Score 2 04/18/2023 Housing Stability Answer Date Recorded What is your housing situation today? I have olagreese fitch 03/17/[address] you li ve. Do you have problems with any of the following? None of the above 03/17/2024 Food Insecurity Answer Date Recorded Within the past 12 months, y ou worried that your food would run out before you got money to buy more: Never True 03/17/2024 Within the past 12 months,th e food you bought just didn't last and you didn't have enough money to get more: Never True Transportation Answer Date Recorded In the past 12 months, has l ack of transportation kept you from medical appts, meetings, work or from getting things needed for daily living? No 03/17/2024 Utilities Answer Date Recorded In the past 12 months, has t he electric, gas, oil or water company threatened to shut off services in your home? No 03/17/2024 Depression Answer Date Recorded Patient Health Questionnaire-2 Score 0 04/18/2023 Internet Access Answer Date Recorded Internet Access Q1 Yes 04/28/2024 Internet Access Q2 Not on file 04/28/2024 Sex and Gender Information Value Date Recorded Sex Assigned at Male 06/26/2022 10:15 AM EDT Legal Sex Male 10:15 AM EDT Gender Identity Male 10/26/2022 2:24 PM EST Sexual Orientation Straight 10/26/2022 2: 24 PM EST documented as of this encounter Plan of Treatment Not on file documented as of this encounter Visit Diagnoses Not on filedocumented in this encounter Additional Health Concerns Assessment Noted Time PHQ-9 Depression Total Score: 2 04/18/20 23 11:48 AM EDT documented as of this encounter Care Teams Supply Chain Business Analyst Relationship Specialty Start Date End Date Cintia Sheets MD [address] [place] [phone] PCP - General Family Medicine 08/27/18 documented as of this encounter
--- OUTSIDE RECORDS SUMMARY | 2025-06-29 09:14 | XMS_ITS | Encounter Summary ---
Author Organization [employer] Address [address] [facility] [address] [place] [address] Care Team Providers Care Tensile Tester Name Role Phone Cintia Sheets MD Primary Care Provider [phone] Encounter Details Date Type Department Care Team ([facility] st Contact Info) Description 10/11/2022 Telephone [facility] CHC MED & PEDS [address] [place], [place] [phone] Cintia Sheets MD [address] [place] [address] Social History Tobacco Use Types Packs/Day Years Used Date Smoking Tobacco: Never Passive Smoke Exposure: Never Smokeless Tobacco: Never Sex and Gender Information Value Date Recorded [...] suspected to have Coronavirus/COVID-19? No / Unsure 09/27/2022 12:44 PM EST documented as of this encounter Miscellaneous Notes * Telephone Encounter - Maritza Zamarripa - 10/11/2022 12:31 PM EST cetirizine (ZyrTEC) 10 MG tablet,omeprazole (PriLOSEC) [address] capsule documented in this encounter Plan of Treatment Not on file documented as of this encounter Visit Diagnoses Not on filedocumented in this encounter Care Teams Tensile Tester Relationship Specialty Start Date End Date Cintia Sheets MD [address] [place] [id number] PCP - General Family Medicine 08/27/18 documented as of this encounter
--- OUTSIDE RECORDS SUMMARY | 2025-06-29 09:14 | XMS_ITS | Encounter Summary ---
Author Organization [employer] Address 75 [facility] 7t [place] [address] Care Team Providers Care Broker Name Role Phone Cintia Sheets MD Primary Care Provider [phone] Reason for Visit * Reason Comments Med Refill Encounter Details Date Type Department Care Team ([facility] Contact Info) Description 08/15/2024 Refill [facility] CHC MED & PEDS 505 [place], [place] [phone] Cintia Sheets MD 505 [place] [address] Social History Tobacco Use Types Packs/Day Years [...] is your housing situation today? I have olgareese fitch 03/17/[address] you [...] documented as of this encounter Care Teams Broker Relationship Specialty Start Date End Date Cintia Sheets MD [address] [place] [address] PCP - General Family Medicine 08/27/18 documented as of this encounter
--- OUTSIDE RECORDS SUMMARY | 2025-06-29 09:14 | XMS_ITS | Encounter Summary ---
Author Organization [employer] Address 75 [facility] 7t [place] [address] Care Team Providers Care Fish Egg Packer Name Role Phone Cintia Sheets MD Primary Care Provider Reason for Visit * Reason Comments Med Refill Encounter Details Date Type Department Care Team ([facility] Contact Info) Description 09/22/2024 Refill [facility] CHC MED & PEDS 505 [place], [place] [phone] Cintia Sheets MD 505 [place] [address] Social History Tobacco Use Types Packs/Day Years [...] documented as of this encounter Care Teams Fish Egg Packer Relationship Specialty Start Date End Date Cintia Sheets MD [address] [place] [address] PCP - General Family Medicine 08/27/18 documented as of this encounter
--- OUTSIDE RECORDS SUMMARY | 2025-06-29 09:15 | XMS_ITS | Encounter Summary ---
Author Organization [employer] Address 75 [facility] 7t [place] [address] Care Team Providers Care Chip Crusher Operator Name Role Phone Cintia Sheets MD Primary Care Provider [phone] Reason for Visit * Reason Comments Med Refill Encounter Details Date Type Department Care Team ([facility] st Contact Info) Description 06/13/2024 Refill [facility] [address] [place] [address] Cintia Sheets MD 505 [place] [address] Vitamin B12 deficiency (non anemic) Social History Tobacco Use Types Packs/Day Years [...] as of this encounter Visit Diagnoses Diagnosis Vitamin B12 deficiency (non anemic) Other B-complex deficiencies documented in this encounter Additional Health Concerns Assessment Noted Time PHQ-9 Depression Total Score: 2 04/18/20 23 11:48 AM EDT documented as of this encounter Care Teams Chip Crusher Operator Relationship Specialty Start Date End Date Cintia Sheets MD 505 [place] [address] PCP - General Family Medicine 08/27/18 documented as of this encounter
--- OUTSIDE RECORDS SUMMARY | 2025-06-29 09:15 | XMS_ITS | Encounter Summary ---
Author Organization [employer] Address 75 [facility] 7t [place] [address] Care Team Providers Care Set Up Machinist Name Role Phone Cintia Sheets MD Primary Care Provider [phone] Reason for Visit * Reason Comments Med Refill Encounter Details Date Type Department Care Team ([facility] st Contact Info) Description 05/02/2023 Refill [facility] CHC MED & PEDS 505 [place], [place] [phone] Cintia Sheets MD 505 [place] [address] Vitamin B12 deficiency (non anemic) Social History Tobacco Use Types Packs/Day Years Used Date Smoking Tobacco: Never Passive Smoke Exposure: Never Smokeless Tobacco: Never Alcohol Use Standard Drinks/Week Comments Never 0 (1 standard drink = 0.6 oz pur e alcohol) Depression Answer Date Recorded Patient Health Questionnaire-9 Score 2 04/18/2023 Depression Answer Date Recorded Patient Health Questionnaire-2 Score 0 04/18/2023 Sex and Gender Information Value Date Recorded [...] documented as of this encounter Care Teams Set Up Machinist Relationship Specialty Start Date End Date Cintia Sheets MD [address] [place] [address] PCP - General Family Medicine 08/27/18 documented as of this encounter
--- OUTSIDE RECORDS SUMMARY | 2025-06-29 09:15 | XMS_ITS | Encounter Summary ---
Author Organization [email or web address] Address 75 [facility] 7t [place] [address] Care Team Providers Care Cell Support Operator Name Role Phone Cintia Sheets MD Primary Care Provider [phone] Reason for Visit * Reason Comments Med Refill Encounter Details Date Type Department Care Team ([facility] st Contact Info) Description 05/15/2023 Refill [facility] CHC MED & PEDS 505 [place], [place] [phone] Cintia Sheets MD 505 [place] [address] Vitamin B12 deficiency (non anemic) Social History [...] documented as of this encounter Care Teams Cell Support Operator Relationship Specialty Start Date End Date Cintia Sheets MD [address] [place] [address] PCP - General Family Medicine 08/27/18 documented as of this encounter
--- OUTSIDE RECORDS SUMMARY | 2025-06-29 09:15 | XMS_ITS | Encounter Summary ---
Author Organization [employer] Address 75 [facility] 7t [place] [address] Care Team Providers Care Dimensional Integration Engineer Name Role Phone Cintia Sheets MD Primary Care Provider [phone] Reason for Visit * Reason Comments Med Refill Encounter Details Date Type Department Care Team ([facility] Contact Info) Description 12/25/2023 Refill [facility] CHC MED & PEDS 505 [place], [place] [phone] Cintia Sheets MD 505 [place] [address] RLS (restless legs syndrome) Social History Tobacco Use Types Packs/Day Years Used Date Smoking Tobacco: Never Passive Smoke Exposure: Never Smokeless Tobacco: Never Alcohol Use Standard Drinks/Week Comments Never 0 (1 standard drink = 0.6 oz pur e alcohol) Depression Answer Date Recorded Patient Health Questionnaire-9 Score 2 04/18/2023 Housing Stability Answer Date Recorded What is your housing situation today? I have olga fitch 06/19/[address] you li ve. Do you have problems with any of the following? None of the above 06/19/2023 Food Insecurity Answer Date Recorded Within the past 12 months, y ou worried that your food would run out before you got money to buy more: Never True 06/19/2023 Within the past 12 months,th e food you bought just didn't last and you didn't have enough money to get more: Never True Transportation Answer Date Recorded In the past 12 months, has l ack of transportation kept you from medical appts, meetings, work or from getting things needed for daily living? No 06/19/2023 Utilities Answer Date Recorded In the past 12 months, has t he electric, gas, oil or water company threatened to shut off services in your home? No 06/19/2023 Depression Answer Date Recorded Patient Health Questionnaire-2 [...] as of this encounter Visit Diagnoses Diagnosis RLS (restless legs syndrome) Restless legs syndrome (RLS) documented in this encounter Additional Health Concerns Assessment Noted Time PHQ-9 Depression Total Score: 2 04/18/20 23 11:48 AM EDT documented as of this encounter Care Teams Dimensional Integration Engineer Relationship Specialty Start Date End Date Cintia Sheets MD [address] [place] [address] PCP - General Family Medicine 08/27/18 documented as of this encounter
--- OUTSIDE RECORDS SUMMARY | 2025-06-29 09:15 | XMS_ITS | Encounter Summary ---
Author Organization [employer] Address 75 [facility] 7t [place] [address] Care Team Providers Care Stock Manager Name Role Phone Cintia Sheets MD Primary Care Provider [phone] Reason for Visit * Reason Comments Med Refill Encounter Details Date Type Department Care Team ([facility] st Contact Info) Description 05/23/2023 Refill [facility] CHC MED & PEDS 505 [place], [place] [phone] Cintia Sheets MD 505 [place] [address] Vitamin B12 deficiency (non anemic) Social History [...] documented as of this encounter Care Teams Stock Manager Relationship Specialty Start Date End Date Cintia Sheets MD [address] [place] [address] PCP - General Family Medicine 08/27/18 documented as of this encounter
--- OUTSIDE RECORDS SUMMARY | 2025-06-29 09:15 | XMS_ITS | Encounter Summary ---
Author Organization [employer] Address 75 [facility] 7 [place] [address] Care Team Providers Care Director Business Systems Name Role Phone Cintia Sheets MD Primary Care Provider [phone] Reason for Visit * Reason Comments Med Refill Encounter Details Date Type Department Care Team ([facility] Contact Info) Description 05/25/2023 Refill [facility] CHC MED & PEDS 505 [place] [address] Anahi Smith MD 505 [place] [address] Social History Tobacco Use Types Packs/Day Years [...] Time PHQ-9 Depression Total Score: 2 04/18/20 11:48 AM EDT documented as of this encounter Care Teams Director Business Systems Relationship Specialty Start Date End Date iCntia Sheets MD [address] [place] [address] PCP - General Family Medicine 08/27/18 documented as of this encounter
--- OUTSIDE RECORDS SUMMARY | 2025-06-29 09:15 | XMS_ITS | Data Portability ---
Author Organization [place] [facility], [facility] Address [address] [place] [address] Care Team Providers Care K 8 School Principal Name Role Phone Unavailable OTHER Assessment No assessment recorded. Plan of Treatment Reminders Order Date Submit Date Provider Last Modified By Organization Details Last Modified Time Details Appointments None recorded . Lab None recorded . Referral None recorded . Procedures None recorded . Surgeries None recorded . Imaging None recorded . Medication Orders valacycl ovir 1 gram tablet 2023 024 csocolovsky Not available 14:22:47 predniso ne 10 mg tablet 2023 024 [facility], [address] [place] [address], [address], 4 14:22:50 Patient TargetsNo targets recorded. Patient InstructionsNo instructions recorded. Reason for Referral None Reported. Medical Equipment None Reported. Allergies Allergen ID Allergen Name Allergen Category Reaction Reaction Severity Criticality Documentation Date Start Date Code Code System Note Provider Name and Address Organization Details Recorded Time 8943 ibuprofen medicatio n Not available Not available Not available 06/24/2024 5640 RxNorm Not Available [facility] - production 4 03:47:53 Medications Name Sig Start Date Stop Date Status Note LastModified by Organization Details LastModified Time atorvastatin 80 mg tablet active Not Available Not Available No t Available prednisone 10 mg tablet TAKE 6 TABLETS BY MOUTH FOR DAYS 1-7. TAKE 3 TABLETS BY MOUTH FOR DAYS 8-14. TAKE 1 AND A HALF TABLETS BY MOUTH FOR DAYS 15-16. TAKE 1 TABLET BY MOUTH FOR DAY 17. TAKE HALF A TABLET FOR DAYS 18-21 (VIAL) active Not Available Not Available No t Available donepezil 5 mg tablet active Not Available Not Available Not Available valacyclovir 1 gram tablet Take 1 tablet every 8 hours by oral route. 2023 active Not Available Not Available Not Avai lable ropinirole 3 mg tablet active Not Available Not Available Not Available cyanocobalamin (vit B-12) 1,000 mcg tablet active Not Available Not Available Not Available ketorolac 0.5 % eye drops active Not Available Not Available No t Available methocarbamol 750 mg tablet active Not Available Not Availabl e Not Available neomycin-polymy celina-dexameth 3.5 mg/mL-10,000 unit/mL-0.1% eye drops active Not Available Not Available No t Available omeprazole 20 mg capsule,delayed release active Not Available Not Available Not Available sertraline 50 mg tablet active Not Available Not Available No t Available Fish Oil 300 mg-1,000 mg capsule active Not Available Not Available Not Available Flowflex COVID-19 Antigen Home Test kit active Not Available Not Available Not Available Vitals Date Recorded Body weight Body height Oxygen saturation Oxygen saturation in Arterial blood by Pulse oximetry Body temperature Heart rate Respiratory rate Systolic And Diastolic Provider Name and Address Organization Details Last Updated DateTime 4 17941.6 g 157.48 cm 96 % 96 % 99 [degF] 71 /min 18 /min 110/64 mm[Hg] Not Available [facility] - production 4 14:07:46 Social History None recorded. Functional Status None recorded. Mental Status None recorded. Family History Nothing Reported. Medical History No medical history recorded. Past Encounters Encounter ID Performer Location Encounter Start Date Encounter Closed Date Diagnosis/Indication Diagnosis SNOMED-CT Code Diagnosis ICD10 Code Diagnosis IMO Codes Diagnosis Note [id number] Martha Caal MD Main - [facility] [address] [place] [phone] 05/09/2024 14:07:36 05/09/2024 22:41:00 Herpes zoster [id number] B02.9 I provided real -time medical direction via phone for this encounter, and was available for additional phone based assistance as needed. I have reviewed and agree with the Assessment and Plan as documented by the Hydramatic Mechanic. Patient given the opportunit y to ask questions. 3-4 d painful erythemato us rash on back and torso. rates an 8/10. no known drug allergies or kidney disease. very classic presentati on for shingles. On review of AFP guidelines , will treat with valacyclov ir for 7d and prolonged steroid taper. Recommende d follow up with PCP. Health Concerns Section Related Observation LastModified by Organization Detai ls LastModified Time None Recorded Concern Status LastModified by Organization Details LastModified Time None Recorded Advance Directives Directive None Recorded Payers Insurance Date Sequence Insurance Name Policy Number Policy Henderson Covered Member ID Henderson Member ID Guarantor Name 05/09/2024 1 [facility] - DOS ON OR AFTER 2022 - DUAL ELIGIBLE - CORRECTION OPTIONS AND ONE CARE (MEDICARE REPLACEMENT/ADV ANTAGE - HMO) Fran Gabrielle [id number] Fran Anthony Notes Date Note Type Note Provider Name and Address Organization Details Recorded Time 05/09/2024 text/html HPI: Patient with now day 3 rash to left chest wall with pain .................. .................. .................. .................. .................. .................. .................. ............... [facility] Nurse Triage Notes (Karol Spears): Chief Complaints: Pain PMH: Hypertension Allergies: Ibuprofen Comments: HPI reviewed. No further information needed to process visit. .................. .................. .................. .................. .................. .................. .................. ............... Hydramatic Mechanic Note From April Can: Sent to a call for a pt complaining of a rash. SC8 arrives on scene, pt is alert and oriented, airway is patent. Allergies verified: Ibuprofen (rash); Pt complains of rash on left chest and left back, general body pain, and chills x 3-4 days. Pt denies torres, vision changes, dizziness, cp, sob, n/v/d, abd pain, fever, or loc. BP:110/64, P:71, RR:18, SpO2:96% RA, T:99.0, Ht:5'2, Wt:175lb; Pt states he took Tylenol 1gm PO at approx 9am with some relief. [facility]. Head: unremarkable; Lung sounds: clear bilaterally; Chest: rash on left lower chest, mostly intact vesicles, with some scabbing noted; Back: rash on left upper back, mostly intact vesicles with some scabbing noted; Extremities: unremarkable; Skin: pink, warm, dry; [facility] consulted and pt reports 8/10 pain. Medications: Omeprazole and Fish Oil; [facility] sends script to pt's pharmacy for Valtrex and Prednisone. Pt uses [facility] and states he is unable to use another pharmacy. [facility] contacted and states usually cut off for next day delivery is 0012-9026 daily. Staff states they will try to have medications delivered by document processor tomorrow, but they might not be delivered until Sunday. Pt advised to continue taking Tylenol 1gm TID. Red flags discussed. Pt has no further questions. .................. .................. .................. .................. .................. .................. .................. ............... Disposition: Atul Caal MD [address] [facility],[address], [place], [address], [place] [facility] 05/09/2024 21:34:28
--- OUTSIDE RECORDS SUMMARY | 2025-06-29 09:15 | XMS_ITS | Encounter Summary ---
Author Organization [employer] Address 75 [facility] 7t [place] [address] Care Team Providers Care Chemical Detection Expert Name Role Phone Cintia Sheets MD Primary Care Provider Reason for Visit * Reason Comments Med Refill Encounter Details Date Type Department Care Team ([facility] Contact Info) Description 07/01/2024 Refill [facility] CHC MED & PEDS 505 [place], [place] [phone] Cintia Sheets MD 505 [place] [address] Social History Tobacco Use Types Packs/Day Years [...] documented as of this encounter Care Teams Chemical Detection Expert Relationship Specialty Start Date End Date Cintia Sheets MD [address] [place] [address] PCP - General Family Medicine 08/27/18 documented as of this encounter
--- OUTSIDE RECORDS SUMMARY | 2025-06-29 09:15 | XMS_ITS | Encounter Summary ---
Author Organization [employer] Address 75 [facility] 7t [place] [address] Care Team Providers Care Assistant Import Manager Name Role Phone Cintia Sheets MD Primary Care Provider [phone] Reason for Visit * Reason Comments Med Refill Encounter Details Date Type Department Care Team ([facility] Contact Info) Description 07/25/2024 Refill [facility] CHC MED & PEDS 505 [place], [place] [phone] Cintia Sheets MD 505 [place] [address] Social History Tobacco Use Types Packs/Day Years [...] encounter Miscellaneous Notes * Telephone Encounter - Jennifer Gonzales - 07/31/2024 4:31 PM EST Good afternoon Dr. Sheets, if patient wishes to see [facility] referral needs to be made to to physiatry. If you could please send a new one, thank you. documented in this encounter Plan of Treatment Not on file documented as of this encounter Visit Diagnoses Not on filedocumented in this encounter Additional Health Concerns Assessment Noted Time PHQ-9 Depression Total Score: 2 04/18/20 23 11:48 AM EDT documented as of this encounter Care Teams Assistant Import Manager Relationship Specialty Start Date End Date Cintia Sheets MD [address] [place] [address] PCP - General Family Medicine 08/27/18 documented as of this encounter
--- OUTSIDE RECORDS SUMMARY | 2025-06-29 09:15 | XMS_ITS | Patient Health Record ---
Author Organization [employer] Address [address] [place] [address] Care Team Providers Care Rfid Developer Name Role Phone Chris Garcia Unavailable [phone] Reason For Referral No Information Plan Of Treatment No Information
--- OUTSIDE RECORDS SUMMARY | 2025-06-29 09:15 | XMS_ITS | Encounter Summary ---
Author Organization [employer] Address 75 [facility] 7t [place] [address] Care Team Providers Care Wireworker Supervisor Name Role Phone Cintia Sheets MD Primary Care Provider Reason for Visit * Reason Comments Med Refill Encounter Details Date Type Department Care Team ([facility] Contact Info) Description 12/25/2023 Refill [facility] CHC MED & PEDS 505 [place], [place] [phone] Cintia Sheets MD 505 [place] [address] RLS (restless legs syndrome) Social History Tobacco [...] documented as of this encounter Care Teams Wireworker Supervisor Relationship Specialty Start Date End Date Cintia Sheets MD [address] [place] [address] PCP - General Family Medicine 08/27/18 documented as of this encounter
--- OUTSIDE RECORDS SUMMARY | 2025-06-29 09:15 | XMS_ITS | Encounter Summary ---
Author Organization [employer] Address 75 [facility] 7t [place] [address] Care Team Providers Care Cassandra Developer Name Role Phone Cintia Sheets MD Primary Care Provider [phone] Reason for Visit * Reason Comments Med Refill Encounter Details Date Type Department Care Team ([facility] Contact Info) Description 05/25/2023 Refill [facility] CHC MED & PEDS 505 [place], [place] [phone] Cintia Sheets MD 505 [place] [address] Memory deficit Social History Tobacco Use Types Packs/Day Years [...] as of this encounter Visit Diagnoses Diagnosis Memory deficit Memory loss documented in this encounter Additional Health Concerns Assessment Noted Time PHQ-9 Depression Total Score: 2 04/18/20 11:48 AM EDT documented as of this encounter Care Teams Cassandra Developer Relationship Specialty Start Date End Date Cintia Sheets MD [address] [place] [address] PCP - General Family Medicine 08/27/18 documented as of this encounter
--- OUTSIDE RECORDS SUMMARY | 2025-06-29 09:15 | XMS_ITS | Patient Health Record ---
Author Organization [facility] Address [address] [facility] [address] Care Team Providers Care Despatch Clerk Name Role Phone LatriceCintia yin Primary Care Provider Unavailab Bubba [place] Unavailable [phone] Allergies Allergen (clinical drug ingredient) Drug/Non Drug Allergy documented on EMR Reaction Allergy Type Onset Date Status ibuprofen Advil red skin Drug Allergy Active Aleve red skin Drug Allergy Active Motrin red skin Drug Allergy Active Reason For Referral No Information Medications Medication SIG (Take, Route, Fr equency, Duration) Notes Start Date End Date Status Vitamin B 12 Active Fish Oil 1000 MG 1 capsule Orally Three times a day Active Social History Tobacco Use: Social History Observation Description Date Details (start date - stop date) Never Smoker NA - NA Tobacco use other than smoking: Question Answer Notes Are you an other tobacco user? No Tobacco Control (Standard) Question Answer Notes Tobacco use: Nonsmoker Additional Findings: Tobacco non-user Current no nsmoker AUDIT-C (Standard) Question Answer Notes Did you have a drink containing alcohol in the p ast year? No Points 0 Interpretation Negative Vital Signs Blood pressure diastolic 70 mm Hg 10/30/2024 Height 5ft2in in 10/30/2024 Blood pressure systolic 120 mm Hg 10/30/2024 Weight 172 lbs 10/30/2024 BMI 31.46 kg/m2 10/30/2024 Encounters Encounter [facility] Date [facility] [address] [place] [address] 10/30/2024 Bubba Luque Pain in right foot M79.671 ; Pain in right ankle and joints of right foot M25.571 ; Bursitis of intermetatarsal bursa of right foot M77.51 and Metatarsalgia, right foot M77.41 [facility] [address] [address] 10/30/2024 Bubba Luque Assessments Encounter Date Diagnosis (ICD Code) Assessment Notes Treatment Notes Treatment Clinical Notes Section Notes 10/30/2024 Pain in right ankle and joints of right foot (ICD-10 - M25.571) 10/30/2024 Pain in right foot (ICD-10 - M79.671) 10/30/2024 Bursitis of intermetatarsal bursa of right foot (ICD-10 - M77.51) 10/30/2024 Metatarsalgia, right foot (ICD-10 - M77.41) Plan Of Treatment Pending Test Test Name Order Date X ray : Foot, right 3V 10/30/2024 Insurance Providers Payer Name Payer Address Payer Phone Subscriber Number Group Number Insured Name Patient Relationship to Insured Coverage Start Date Coverage End Date [facility] [employer] Claims [address] [place] [id number] Fran Anthony Self - patient is the insured Medical (General) History Medical History History ICD Code Back,Hip,and Knee pain covid-19
--- OUTSIDE RECORDS SUMMARY | 2025-06-29 09:15 | XMS_ITS | Encounter Summary ---
Author Organization [employer] Address [address] [facility] 7t [place] [address] Care Team Providers Care Outbound Sales Representative Name Role Phone Cintia Sheets MD Primary Care Provider [phone] Reason for Visit * Reason Comments Med Refill Encounter Details Date Type Department Care Team ([place] [facility] Contact Info) Description 07/21/2024 Refill [facility] CH[facility] MED & PEDS [address] [place], [place] [phone] Cintia Sheets MD [address] [place] [address] Social History Tobacco Use Types Packs/Day Years [...] is your housing situation today? I have oglareese fitch 03/17/[address] you [...] encounter Miscellaneous Notes * Telephone Encounter - Cintia Sheets MD - 07/22/2024 11:24 AM EST Needs to have labs for vitamin D levels done.I ordered labs in early June but it doesn't seem he had them done.Cannot refill weekly high dose vitamin D unless needed after level rechecked,please inform patient. documented in this encounter Plan of Treatment Not on file documented as of this encounter Visit Diagnoses Not on filedocumented in this encounter Additional Health Concerns Assessment Noted Time PHQ-9 Depression Total Score: 2 04/18/20 23 11:48 AM EDT documented as of this encounter Care Teams Outbound Sales Representative Relationship Specialty Start Date End Date Cintia Sheets MD [address] [place] [id number] PCP - General Family Medicine 08/27/18 documented as of this encounter
--- OUTSIDE RECORDS SUMMARY | 2025-06-29 09:16 | XMS_ITS | Encounter Summary ---
Author Organization [employer] Address [address] [facility] 7t [place] [address] Care Team Providers Care Search Lead Name Role Phone Cintia Sheets MD Primary Care Provider [phone] Reason for Visit * Reason Onset Date Comments Med Refill 06/17/2025 Encounter Details Date Type Department Care Team ([facility] st Contact Info) Description 06/17/[address] [facility] MEDICINE [address] [place] [address] Cintia Sheets MD [address] [place] [address] Med Refill Social History Tobacco Use Types Packs/Day Years [...] your housing situation today? I have olga constantine 03/17/[address] you li [...] encounter Miscellaneous Notes * Telephone Encounter - Ritika Lee LPN - 06/17/2025 3:16 PM EDT [facility] doesn't require 90 day supply. * Telephone Encounter - Mickie Gonzales - 06/17/2025 3:10 PM EDT [facility] for ergocalciferol (Vitamin D2) 1.25 MG (91348 UT) capsule Re sent for 90 days supplies by insurance request. PCP DR. Sheets documented in this encounter Plan of Treatment Not on file documented as of this encounter Visit Diagnoses Not on filedocumented in this encounter Additional Health Concerns Assessment Noted Time PHQ-9 Depression Total Score: 2 04/18/20 23 11:48 AM EDT documented as of this encounter Care Teams Search Lead Relationship Specialty Start Date End Date Cintia Sheets MD [address] [place] [address] PCP - General Family Medicine 1/1/19 documented as of this encounter
--- OUTSIDE RECORDS SUMMARY | 2025-06-29 09:16 | XMS_ITS | Encounter Summary ---
Author Organization [employer] Address 75 [facility] [place] 7t [place] [address] Care Team Providers Care Kingsbury Machine Operator Name Role Phone Cintia Sheets MD Primary Care Provider [phone] Reason for Visit * Reason Comments Med Refill Encounter Details Date Type Department Care Team ([facility] Contact Info) Description 05/13/2025 Refill [facility] CHC MED & PEDS [address] [place], [place] [phone] Cintia Sheets MD [address] [place] [address] Social History Tobacco Use Types Packs/Day Years [...] documented as of this encounter Care Teams Kingsbury Machine Operator Relationship Specialty Start Date End Date Cintia Sheets MD [address] [place] [address] PCP - General Family Medicine 08/27/18 documented as of this encounter
--- OUTSIDE RECORDS SUMMARY | 2025-06-29 09:16 | XMS_ITS | Encounter Summary ---
Author Organization [employer] Address 75 [facility] 7t [place] [address] Care Team Providers Care Mother'S Helper Name Role Phone Cintia Sheets MD Primary Care Provider [phone] Reason for Visit * Reason Comments Med Refill Encounter Details Date Type Department Care Team ([facility] st Contact Info) Description 06/06/2024 Refill [facility] MEDICINE [address] [place] [address] Cintia Sheets MD [address] [place] [address] Vitamin B12 deficiency (non anemic) Social History [...] documented as of this encounter Care Teams Mother'S Helper Relationship Specialty Start Date End Date Cintia Sheets MD [address] [place] [address] PCP - General Family Medicine 08/27/18 documented as of this encounter
--- OUTSIDE RECORDS SUMMARY | 2025-06-29 09:16 | XMS_ITS | Encounter Summary ---
Author Organization [employer] Address [address] [facility] 7t [place] [address] Care Team Providers Care Home Worker Name Role Phone Cintia Sheets MD Primary Care Provider [phone] Reason for Visit * Reason Comments Med Refill Encounter Details Date Type Department Care Team ([facility] st Contact Info) Description 06/11/2024 Refill [facility] [address] [place] [address] Cintia Sheets MD [address] [place] [address] Vitamin B12 deficiency (non anemic) Social History [...] documented as of this encounter Care Teams Home Worker Relationship Specialty Start Date End Date Cintia Sheets MD [address] [place] [address] PCP - General Family Medicine 08/27/18 documented as of this encounter
--- OUTSIDE RECORDS SUMMARY | 2025-06-29 09:16 | XMS_ITS | Encounter Summary ---
Author Organization [employer] Address [address] [facility] 7t [place] [address] Care Team Providers Care Electronics Installer Name Role Phone Cintia Sheets MD Primary Care Provider [phone] Reason for Visit * Reason Comments Med Refill Encounter Details Date Type Department Care Team ([facility] st Contact Info) Description 06/03/2024 Refill [facility] MEDICINE [address] [place] [address] Cintia Sheets MD [address] [place] [address] Vitamin B12 deficiency (non anemic) Social History [...] documented as of this encounter Care Teams Electronics Installer Relationship Specialty Start Date End Date Cintia Sheets MD [address] [place] [address] PCP - General Family Medicine 08/27/18 documented as of this encounter
--- OUTSIDE RECORDS SUMMARY | 2025-06-29 09:16 | XMS_ITS | Encounter Summary ---
Author Organization [employer] Address [address] [facility] 7t [place] [address] Care Team Providers Care Metalworking Specialist Name Role Phone Cintia Sheets MD Primary Care Provider [phone] Reason for Visit * Reason Comments Med Refill Encounter Details Date Type Department Care Team ([facility] Contact Info) Description 04/15/2025 Refill [facility] CHC MED & PEDS [address] [place], [place] [phone] Citnia Sheets MD [address] [place] [address] Vitamin B12 deficiency (non anemic) Social History [...] housing situation today? I have olga fitch 03/17/[address] you [...] documented as of this encounter Care Teams Metalworking Specialist Relationship Specialty Start Date End Date Cintia Sheets MD [address] [place] [address] PCP - General Family Medicine 08/27/18 documented as of this encounter
--- OUTSIDE RECORDS SUMMARY | 2025-06-29 09:16 | XMS_ITS | Encounter Summary ---
Author Organization [employer] Address [address] [facility] 7t [place] [address] Care Team Providers Care Collar Padder Blindstitch Name Role Phone Cintia Sheets MD Primary Care Provider [phone] Reason for Visit * Reason Comments Med Refill Encounter Details Date Type Department Care Team ([facility] st Contact Info) Description 06/17/2024 Refill [facility] MEDICINE [address] [place] [address] Cintia Sheets MD [address] [place] [address] Vitamin B12 deficiency (non anemic) Social History [...] documented as of this encounter Care Teams Collar Padder Blindstitch Relationship Specialty Start Date End Date Cintia Sheest MD [address] [place] [address] PCP - General Family Medicine 08/27/18 documented as of this encounter
--- OUTSIDE RECORDS SUMMARY | 2025-06-29 09:16 | XMS_ITS | Clinical Summary ---
Author Organization [email or web address] Address [address] [facility] 7t [place] [address] Care Team Providers Care Hand Coper Name Role Phone Cintia Sheets MD Primary Care Provider [phone] Allergies Active Allergy Reactions Criticality Noted Date Comments Ibuprofen Swelling 09/01/2010 Medications Pain Relief Extra Strength 500 MG tablet TAKE 1 TABLET (500MG) BY MOUTH EVERY 8 HOURS NEEDED FOR MILD PAIN FOR UP TO 7 DAYS (VIAL) 21 tablet 12/30/19 23 Active neomycin-polym yxin-dexAMETHa sone (Maxitrol) 3.5-76469-7.1 ophthalmic suspension 02/19/20 24 Active Diclofenac Sodium 1 % gel Apply daily to affected areas 100 g 5 07/31/20 24 Active methocarbamol (Robaxin) 750 MG tablet TAKE ONE TABLET BY MOUTH AT BEDTIME (VIAL) 30 tablet 1 02/07/20 25 Active donepezil (Aricept) 5 MG tabletIndicati ons:Memory deficit TAKE ONE TABLET BY MOUTH AT BEDTIME (VIAL) 30 tablet 5 02/07/20 25 Active methocarbamol (Robaxin) 750 MG tablet TAKE ONE TABLET BY MOUTH AT BEDTIME (VIAL) 30 tablet 10/10/19 25 Active omeprazole (PriLOSEC) [address] capsuleIndicat ions:Gastroeso phageal reflux disease without esophagitis,Sam starks, initial encounter TAKE ONE CAPSULE BY MOUTH TWICE A DAY BEFORE BREAKFAST AND EVENING MEAL (VIAL) 30 capsule 11 10/15/19 25 Active donepezil (Aricept) 5 MG tablet TAKE ONE TABLET BY MOUTH AT BEDTIME (VIAL) 30 tablet 3 12/27/19 25 Active sertraline (Zoloft) 50 MG tablet TAKE ONE TABLET BY MOUTH EVERY MORNING ^1R1 30 tablet 5 01/24/20 25 Active cyanocobalamin (Vitamin B-12) 1000 MCG tabletIndicati ons:Vitamin B12 deficiency (non anemic) TAKE ONE TABLET BY MOUTH EVERY DAY (VIAL) 30 tablet 3 05/26/20 25 Active ergocalciferol (Vitamin D2) 1.25 MG (11553 UT) capsule TAKE ONE CAPSULE BY MOUTH EVERY WEEK (VIAL) 4 capsule 2 05/26/20 25 Active atorvastatin (Lipitor) 80 MG tablet TAKE ONE TABLET BY MOUTH EVERY DAY (VIAL) 30 tablet 2 05/26/20 25 Active omega-3 (fish oil) 1000 MG capsule TAKE ONE CAPSULE BY MOUTH EVERY 12 HOURS ^1R1 30 capsule 11 05/26/20 25 Active cholecalcifero l (Vitamin D-3) 50 MCG (1999 UT) capsuleIndicat ions:Vitamin D deficiency TAKE 1 TABLET MY MOUTH DAILY 90 capsule 3 06/23/20 25 Active cholecalcifero l (Vitamin D-3) 50 MCG (1999 UT) capsuleIndicat ions:Vitamin D deficiency Take 1 capsule orally daily 90 capsule 3 09/27/19 23 025 Discontinued(Re order (will not trigger notification to Pharmacy)) Active Problems Problem Noted Date Diagnosed Date Pre-operative exam 03/17/2024 Assessment & Plan (03/17/2024 1:29 PM EDT): Pt with HTN, well controlled. No indication for further risk stratification prior to surgery. - ALERT to medical tape allergy - ALERT to Ibuprofen allergy He takes no blood thinners, ASA, or NSAIDs. No chronic pain medications - he can proceed with surgery at anesthesia discretion. 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 Cervical radiculopathy 09/03/2012 Impotence of organic origin 12/01/2011 Gastroesophageal reflux disease 12/01/2011 Obesity 12/01/2011 Essential hypertension 12/01/2011 Pure hypercholesterolemia 12/01/2011 Encounters Date Type Department Care Team Description 06/25/2025 11:00 AM EDT Office Visit [facility] CHC MED & PEDS [address] [place] [address] Cintia Sheets MD Idiopathic osteoarthritis (Primary Dx); Encounter for immunization; Vitamin B12 deficiency (non anemic); Pure hypercholesterolemia; Right foot pain; Dietary counseling; Exercise counseling 06/25/2025 Travel 06/23/2025 Telephone [facility] MED & PEDS [address] [place] [address] Cintia Sheets MD Chart Prep 06/23/2025 Refill [facility] CHC MED & PEDS [address] [place] [address] Cintia Sheets MD Vitamin D deficiency 06/17/2025 Telephone [facility] MEDICINE [address] [place] [address] Cintia Sheets MD Med Refill 05/26/2025 Refill [facility] CHC MED & PEDS [address] [place] [address] Cintia Sheets MD Vitamin B12 deficiency (non anemic) 05/13/2025 Refill [facility] MED & PEDS [address] [place] [address] Cintia Sheets MD 04/15/2025 Refill [facility] MED & PEDS [address] [place] [address] Cintia Sheets MD Vitamin B12 deficiency (non anemic) from Last 3 Months Immunizations Immunization Administration Dates Next Due Influenza High-dose Quadrivalent Preservative Fr ee 06/29/2022 Influenza injectable quadriv alent IIV4 with preservative 05/19/2015 Moderna Covid-19 Vaccine 12+ 12/01/2020,11/04/19 21 Pneumococcal Conjugate PCV 13 03/26/2018 Pneumococcal Conjugate PCV 20 06/25/2025 Pneumococcal Polysaccharide PPSV23 06/30/2010 Tdap 03/26/2018 Zoster, Recombinant 07/31/2024 Social History Tobacco Use Types Packs/Day Years Used Date Smoking Tobacco: Never Passive Smoke Exposure: Never Smokeless Tobacco: Never Tobacco Cessation:Counseling Given: Not Answered Alcohol Use Standard Drinks/Week Comments Never 0 [...] Orientation Straight 10/26/2022 2: 24 PM EST Last Filed Vital Signs Vital Sign Reading Time Taken Comments Blood Pressure 110/54 06/25/2025 11:06 AM EDT Pulse 80 06/25/2025 11:06 AM EDT Temperature 36.6 C (97.9 F) 06/25/2025 11:06 AM EDT Respiratory Rate 20 06/25/2025 11:06 AM EDT Oxygen Saturation 98% 11/15/2023 2:03 PM EDT Inhaled Oxygen Concentration - - Weight 79.4 kg (175 lb) 06/25/2025 11:06 AM EDT Height 160 cm (5' 3 ) 07/31/2024 3:29 PM EST Body Mass Index 31 07/31/2024 3:29 PM EST Plan of Treatment Health Maintenance Due Date Last Done Comments Dental Prophylaxis 1950 Dental X-Ray: Full Mouth 1950 Hepatitis C Screening 02/16/1966 RSV Patients and Patients Aged 60 years or older (1 - 1-dose 75+ series) 02/16/2023 Dental Oral Exam 04/29/2023 10/26/2022 Dental X-Ray: Bitewings 09/23/2023 09/22/2022 Zoster Vaccines (2 of 2) 09/25/2024 07/31/2024 COVID-19 Vaccine (3 - 2024-2 6 season) 2025 12/01/2020, 11/03/2020 Influenza Vaccine (#1) 2025 , 05/19/2015 Tobacco Screening 07/31/2025 07/31/2024 Alcohol/Substance Use Screening 06/25/2026 06/25/2025 Depression Screening 06/25/2026 06/25/2025, 06/25/2025 SDOH Screening 06/25/2026 06/25/2025 DTaP/Tdap/Td Vaccines (2 - T d or Tdap) 03/26/2028 03/26/2018 Lipid Panel 11/18/2028 11/19/2023, 09/22/2022, 11/11/2021 Pneumococcal Vaccine: 50+ Years Completed 06/25/2025, 03/26/2018, 06/30/2010 HIB Vaccines Aged Out No longer eligi ble based on patient's age to complete this topic HPV Vaccines Aged Out No longer eligi ble based on patient's age to complete this topic Hepatitis A Vaccines Aged Out No long er eligible based on patient's age to complete this topic Hepatitis B Vaccines Aged Out No long er eligible based on patient's age to complete this topic IPV Vaccines Aged Out No longer eligi ble based on patient's age to complete this topic Meningococcal B Vaccine Aged Out No l onger eligible based on patient's age to complete this topic Meningococcal Vaccine Aged Out No lynsey yogesh eligible based on patient's age to complete this topic RSV under 20 months Aged Out No longe r eligible based on patient's age to complete this topic Rotavirus Vaccines Aged Out No longer eligible based on patient's age to complete this topic Procedures Procedure Name Priority Date/Time Associated Diagnosis Comments LIPID PANEL, STANDARD Routine 11/19/2023 11:47 AM EDT Pre-diabetes Vitamin B12 deficiency (non anemic) Pure hypercholesterolemia COMPREHENSIVE ORAL EVALUATION - NEW OR ESTABLISHED PATIENT Routine 10/26/2022 3:00 PM EST BITEWING - SINGLE RADIOGRAPHIC IMAGE Routine 09/22/2022 11:30 AM EST from Last 3 Months or Most Recently Relevant to Health Maintenance Results * (ABNORMAL) Lipid Panel, Standard (11/19/2023 11:47 AM EDT) Triglycerides 145 <150 mg/dL [facility] Comment:Desirable Triglyceri de: less than 150 mg/dLBorderline High Triglyceride 150-199 mg/dLHigh Triglyceride: 200-499 mg/dLVery High Triglyceride: greater than or equal to 5OO mg/dL Cholesterol 123 <200 mg/dL [facility] Comment:Desirable Cholestero l: less than 200 mg/dLBorderline High Cholesterol: 200-239 mg/dLHigh Cholesterol: greater than 239 mg/dL LDL Cholesterol Calculated 60 <100 mg/dL [facility] Comment:Desirable LDL: less than 100 mg/dLNear Optimal/Above Optimal LDL: 110- 129 mg/dLBorderline High LDL: 130-159 mg/dLHigh LDL: 160-189 mg/dLVery High LDL: greater than or equal to 190 mg/dL HDL Cholesterol 34(L) >40 mg/dL [facility] Comment:Desirable HDL: great er than 40 mg/dL Note: This HDL assay may give artificially low results in patients with liver disease. Blood Venous blood specimen / Unknown 11/19/2023 11:47 AM EDT 11/19/2023 2:34 PM EDT us Cintia Sheets MD LAB BLOOD ORDERABLES Final Re sult [facility] [address] [place] [address] [phone] from Last 3 Months or Most Recently Relevant to Health Maintenance Insurance [facility] LONG TERM OPT[employer] (O D-SNP) DENTAL [facility] Advance Directives Documents on File Type Date Recorded Patient Hot Dip Tinning Supervisor Expl anation MOLST form 01/19/2023 BRENDAN Medical Orde rs for Life Sustaining Treatment HealthCare Proxy 09/04/2022 Proxy Care Teams Hand Coper Relationship Specialty Start Date End Date Cintia Sheets MD [address] [place] [address] PCP - General Family Medicine 08/27/18
--- OUTSIDE RECORDS SUMMARY | 2025-06-29 09:16 | XMS_ITS | Encounter Summary ---
Author Organization [employer] Address [address] [facility] [address] 7[address] [place] [address] Care Team Providers Care Supervisor Publications Name Role Phone Cintia Sheets MD Primary Care Provider [phone] Encounter Details Date Type Department Care Team ([facility] st Contact Info) Description 04/15/2024 Orders Only [facility] CHC MED & PEDS [address] [place], [place] [phone] Provider, MD Joleen Social History Tobacco Use Types Packs/Day Years [...] on file documented as of this encounter Procedures Procedure Name Priority Date/Time Associated Diagnosis Comments EMG Routine 02/14/2023 9:45 AM EDT documented in this encounter Results * EMG (02/14/2023 9:45 AM EDT) us Historical Provider NEUROLOGY ORDERABLES Alize l Result documented in this encounter Visit Diagnoses Not on filedocumented in this encounter Additional Health Concerns Assessment Noted Time PHQ-9 Depression Total Score: 2 04/18/20 11:48 AM EDT documented as of this encounter Care Teams Supervisor Publications Relationship Specialty Start Date End Date Cintia Sheets MD [address] [place] [address] PCP - General Family Medicine 08/27/18 documented as of this encounter
--- OUTSIDE RECORDS SUMMARY | 2025-06-29 09:16 | XMS_ITS | Encounter Summary ---
Author Organization [employer] Address [address] [facility] 7t [place] [address] Care Team Providers Care Teenage Babysitter Name Role Phone Cintia Sheets MD Primary Care Provider [phone] Encounter Details Date Type Department Care Team (Latest Contact Info) Description 06/25/2025 Travel Social History Tobacco Use Types Packs/Day Years [...] PM EST documented as of this encounter Functional Status * Over the [...] Author Not at all 06/25/2025 11:13 AM ESTUARDOT Sarah Rivera MA * Trouble falling or staying asleep, or sleeping too much Answer Date of Assessment Author Not at all 06/25/2025 11:13 AM Sarah Almaraz MA * Feeling tired or having little energy Answer Date of Assessment Author Several days 06/25/2025 11:13 AM EDT Sarah Rivera MA * Poor appetite or overeating Answer Date of Assessment Author Not at all 06/25/2025 11:13 AM ESTUARDOT Sarah Rivera MA * Feeling bad about yourself - or that you are a failure or have let yourself or your family down Answer Date of Assessment Author Not at all 06/25/2025 11:13 AM Sarah Almaraz MA * Trouble concentrating on things, such as reading the newspaper or watching television Answer Date of Assessment Author Not at all 06/25/2025 11:13 AM EDT Sarah Rivera MA * Moving or speaking so slowly that other people could have noticed? Or the opposite - being so fidgety or restless that you have been moving around a lot more than usual. Answer Date of Assessment Author Not at all 06/25/2025 11:13 AM EDT Sarah Rivera MA * Thoughts that you would be [...] Arango MA documented as of this encounter Plan of Treatment Not on file documented as of this encounter Visit Diagnoses Not on filedocumented in this encounter Additional Health Concerns Assessment Noted Time PHQ-9 Depression Total Score: 2 06/25/20 25 11:13 AM EDT documented as of this encounter Care Teams Teenage Babysitter Relationship Specialty Start Date End Date Cintia Sheets MD [address] [place] [address] PCP - General Family Medicine 08/27/18 documented as of this encounter
[2025-06-29 14:10] LABS: MANUAL DIFF FLAG NO
[2025-06-29 14:13] LABS: Hematocrit 42.3 % (42.0-52.0); Hemoglobin 13.8 g/dl (14.0-18.0); Imm Gran Abs Auto 0.02 X10*3/uL (0.00-0.03); Imm Gran Pct Auto 0.3 % (0.0-0.4); Lymphocytes Absolute Auto 2.0 X10*3/uL (1.2-4.9); Mean Corpuscular HGB Conc 32.6 g/dl (31.0-36.0); Mean Corpuscular Hemoglobin 29.7 pg (27.0-33.0); Mean Corpuscular Volume 91.0 fL (80.0-98.0); NRBC Abs Auto 0.000 X10*3/uL (0.0-0.012); NRBC Pct Auto 0.0 /100WBC (0.0-0.2); Platelet Count 233 X10*3/uL (160-400); Red Blood Count 4.65 X10*6/uL (4.60-5.80); White Blood Count 6.1 X10*3/uL (4.8-10.8)
[2025-06-29 14:36] LABS: Alanine Aminotransferase 18 U/L (0-40); Albumin Level 4.5 g/dL (3.5-5.0); Alkaline Phosphatase 75 U/L (39-117); Anion Gap 11 (12-20); Aspartate Amino Transferase 25 U/L (5-37); Blood Urea Nitrogen 18 mg/dL (9-16); Calcium 8.9 mg/dL (8.4-10.2); Carbon Dioxide 27 mmol/L (22-29); Chloride 108 mmol/L (96-108); Cholesterol 229 mg/dL (<200); Estimated Glomerular Filt Rate > 60; HDL Cholesterol 35 mg/dL (>40); Potassium 4.0 mmol/L (3.3-5.1); Sodium 142 mmol/L (135-145); Total Protein 6.9 g/dL (6.5-8.0); Triglycerides 262 mg/dL (<150)
[2025-06-29 14:58] LABS: Folate 10.0 ng/mL (> or = 4.0); Vitamin B12 577 pg/mL (200-900)
== END 2025-06-29 08:43 | disposition home or self-care (01) ==
LOC: HO.CHCLDS 08:42
PROVIDERS: Visit Provider Pediatrics
DX: R73.03 Prediabetes (principal); E55.9 Vitamin D deficiency, unspecified; E78.2 Mixed hyperlipidemia; M19.90 Unspecified osteoarthritis, unspecified site; M54.12 Radiculopathy, cervical region; E53.8 Deficiency of other specified B group vitamins; E78.00 Pure hypercholesterolemia, unspecified
CPT/HCPCS: 36415; 80048; 80061; 80076; 82306; 82607; 82746; 83036; 84443; 85025